=== PATIENT | male | born 1945 | race Caucasian/White ===

== ENCOUNTER → 2017-06-17 12:38 | Outpatient (CLI) | payer MEDICARE, OTHER ==
[2014-07-27 14:47] VITALS: BMI 29.5
[~2017-06-17 12:38] MED LIST: ARTHROTEC 501 TAB.EC PO; BAYER CHEWABLE81 MG PO; CARDURA4 MG; ECOTRIN325 MG PO; FLOMAX0.4 MG PO; LIPITOR10 MG; LOPRESSOR25 MG PO; PLAVIX75 MG PO; RESTORIL15 MG PO
== END | disposition home or self-care (01) ==
LOC: D.MRI 12:38
DX: S91.309A Unspecified open wound, unspecified foot, initial encounter (principal); X58.XXXA Exposure to other specified factors, initial encounter; Y93.89 Activity, other specified; Y92.89 Other specified places as the place of occurrence of the external cause

== ENCOUNTER → 2019-07-21 09:29 | Outpatient (CLI) | payer MEDICARE, BC ==
[2014-07-27 14:47] VITALS: BMI 29.5
[~2019-07-21 09:29] MED LIST changes: +ASPIRIN EC81 M1 PO; +AUGMENTIN 875-11 TAB PO; -CARDURA4 MG; +CARDURA4 MG PO; +CARTIA XT120 MG PO; +COREG 3.1253.125 MG PO; +CYTOTEC200 MCG PO; +HYDROCODON-ACE1 EAC7 PO; -LIPITOR10 MG; +LIPITOR10 MG PO; +MIRALAX17 GM PO; +MUCINEX DM ER1 EAC1 PO
== END | disposition home or self-care (01) ==
LOC: D.HCCECHO 09:29 → D.HCCARDIO 10:00
PROVIDERS: ATTEND Internal Medicine Cardiovascular Disease
DX: I34.0 Nonrheumatic mitral (valve) insufficiency (principal)

== ENCOUNTER 2019-08-03 10:34 | Inpatient (IN) | payer MEDICARE, BC ==
[~2019-08-03] VITALS: Ht 198.1 cm; Wt 109.3 kg
[~2019-08-03 10:34] MED LIST changes: -ASPIRIN EC81 M1 PO; -AUGMENTIN 875-11 TAB PO; -CARTIA XT120 MG PO; -COREG 3.1253.125 MG PO; -CYTOTEC200 MCG PO; -HYDROCODON-ACE1 EAC7 PO; -MIRALAX17 GM PO; -MUCINEX DM ER1 EAC1 PO
--- NOTE | 2019-08-03 10:49 | NUR ---
PT ARRIVED TO FLOOR FROM ADMISSIONS.
[2019-08-03 10:53] VITALS: BP 136/71
--- NOTE | 2019-08-03 12:09 | NUR ---
20G PIV INSERTED X1 ATTEMPT TO PT LEFT FA. PT TOLERATED WELL. CALL LIGHT WITHIN REACH. FAMILY AT BEDSIDE. WILL CONT TO FOLLOW POC
[2019-08-03 13:20] LABS: APPEARANCE HAZY (CLEAR); BILIRUBIN NEGATIVE (NEGATIVE); COLOR AMBER (YELLOW); GLUCOSE NEGATIVE (NEGATIVE); KETONE NEGATIVE (NEGATIVE); NITRITE NEGATIVE (NEGATIVE); PROTEIN 2+ mg/dL (NEGATIVE)
[2019-08-03 13:22] LABS: AMORPHOUS SEDIMENT >1+ /lpf (NONE SEEN); BACTERIA FEW /hpf (NEGATIVE); EPITHELIAL CELLS NSEEN /hpf (0-5); MUCUS >1+ /lpf (NONE SEEN); RED CELLS - URINE NONE SEEN /hpf (0-5); WHITE CELLS - URINE OCC /hpf (NEGATIVE)
[2019-08-03 13:42] LABS: BASOPHILS 0.1 % (0-2); EOSINOPHILS 1.1 % (0-7); HEMATOCRIT 41.1 % (42.0-54.0); HEMOGLOBIN 13.6 g/dL (13.5-17.5); IMMATURE GRANULOCYTES 1.5 % (0-5); LYMPHOCYTES 5.8 % (15-50); MCH 28.9 pg (26.0-34.0); MCHC 33.1 g/dL (31.0-37.0); MCV 87.4 fL (80.0-100.0); MEAN PLATELET VOLUME 10.5 fL (7.4-10.4); MONOCYTES 7.5 % (2-11); RDW 14.1 % (11.5-14.5); WBC 16.1 10x3/uL (4.8-10.8)
[2019-08-03 13:45] LABS: PLATELET COUNT 282 10x3/uL (130-400)
[2019-08-03 13:51] LABS: ANION GAP 10.3 mmol/L (8-16); CALCIUM 8.5 mg/dL (8.5-10.1); CARBON DIOXIDE 31.8 mmol/L (21.0-32.0); CREATININE - SERUM 1.1 mg/dL (0.6-1.3); POTASSIUM - SERUM 4.1 mmol/L (3.5-5.1)
--- NOTE | 2019-08-03 16:03 | MORECARE ---
CASE MANAGEMENT DISCHARGE SUMMARY PATIENT: BEBO COATES UNIT: [id number] ADM DATE: 08/03/19 AGE: 74 : [birth year] SEX: M ROOM/BED: D.1201 AUTHOR: ERIKA GUARDADO PHYSICIAN: REFERRING PHYSICIAN: SHEILA ALLISON MD DATE OF SERVICE: 08/03/19 Discharge Plan Patient Name: BEBO COATES Facility: [facility]:[place] : 1945 Planned Disposition: Home Anticipated Discharge Date: Discharge Date: Expected LOS: Initial Reviewer: [email or web address] Initial Review Date: 08/03/2019 Generated: 08/03/19 5:03 pm DCPIA - Discharge Planning Initial Assessment Updated by [email or web address]: Doris Miguel on 08/03/19 3:52 pm * Is the patient Alert and Oriented? Yes * PCP * [facility] * Preadmission Environment Home with Family * ADLs Independent * Other Equipment WALKING BOOT * List name and contact numbers for known caregivers / representatives who currently or will assist patient after discharge: AMY, , * Additional services required to return to the preadmission environment? No * Can the patient safely return to the preadmission environment? Yes * Has this patient been hospitalized within the prior 30 days at any hospital? No Patient Name: BEBO COATES Page 28944 at 1603 All edits/amendments must be made on the electronic document DICTATION DATE: 08/03/191602 COLOR TECHNICIAN: NANCY 08/03/191602 RPT#: [id number] DC DATE: STATUS: ADM IN [facility] [address] [place] [address] END OF REPORT
--- NOTE | 2019-08-03 16:41 | MORECARE ---
CASE MANAGEMENT DISCHARGE SUMMARY PATIENT: BEBO COATES UNIT: [id number] ADM DATE: 08/03/19 AGE: 74 : 47 SEX: M ROOM/BED: D.1201 AUTHOR: ERIKA GUARDADO PHYSICIAN: REFERRING PHYSICIAN: SHEILA ALLISON MD DATE OF SERVICE: 08/03/19 Discharge Plan Patient Name: BEBO COATES Facility: [facility]:[place] : 1945 Planned Disposition: Home Anticipated Discharge Date: Discharge Date: Expected LOS: Initial Reviewer: [email or web address] Initial Review Date: 08/03/2019 Generated: 08/03/19 5:41 pm Comments DCP- Discharge Planning Updated by [email or web address]: Doris Miguel on 08/03/19 3:[address] Patient Name: BEBO COATES Admission Status: Elective Accout number: [id number] Admission Date: 08-03-2019 : 1945 Admission Diagnosis: Attending: SHEILA ALLISON Current LOS: 1 Anticipated DC Date: Planned Disposition: Home Primary Insurance: MEDICARE A & B Discharge Planning Comments: CM MET WITH PATIENT AFTER OBTAINING VERBAL CONSENT. STATES PLANS TO DISCHARGE TO HOME. DISCUSSED NEED FOR HH, REHAB OR EQUIPMENT, PATIENT STATES NO NEEDS. CM WILL FOLLOW AND ASSIST NEEDED. Director Machine: Doris Miguel DCPIA - Discharge Planning Initial Assessment Updated by [email or web address]: Doris Miguel on 08/03/19 3:52 pm * Is the patient Alert and Oriented? Yes * PCP * [facility] * Preadmission Environment Home with Family * ADLs Independent * Other Equipment WALKING BOOT * List name and contact numbers for known caregivers / representatives who currently or will assist patient after discharge: AMY, , * Additional services required to return to the preadmission environment? No * Can the patient safely return to the preadmission environment? Yes * Has this patient been hospitalized within the prior 30 days at any hospital? No Last DP export: 08/03/19 3:03 Patient Name: BEBO COATES Page 21110 at 1641 All edits/amendments must be made on the electronic document DICTATION DATE: 08/03/191640 MANAGER MEDICAL WRITING: DM 08/03/191640 RPT#: [id number] DC DATE: STATUS: ADM IN [facility] [address] [place] [address] END OF REPORT
--- NOTE | 2019-08-03 17:42 | NUR ---
PT RESTING IN BED, FAMILY AT BEDSIDE. DENIES ANY NEEDS AT THIS TIME, WILL CONT TO FOLLOW POC
[2019-08-03 19:55] VITALS: BP 124/79
[2019-08-04] VITALS: BP 146/66
[2019-08-04 04:03] VITALS: BP 156/75
--- NOTE | 2019-08-04 05:58 | HP ---
PATIENT: BEBO COATES MEDICAL RECORD: [id number] ACCOUNT: [id number] LOCATION:[address] : [birth year] ADMISSION DATE: 08/03/19 PCP: SHEILA ALLISON MD HISTORY AND PHYSICAL EXAMINATION REASON FOR ADMISSION: Cough, congestion, and chest pains. HISTORY OF PRESENT ILLNESS: The patient is a 74-year-old male with previous history of myocardial infarction and CAD. He states that he was on a [place] a week ago and developed some diarrhea. He developed cough and congestion. The diarrhea abated with Lomotil. He came into the office of Dr. Garcia 2 days ago. He had low-grade fever not over 100, productive cough and right-sided pleuritic chest pain. Chest x-ray there then showed early right lower lobe infiltrate. His O2 sat was 93% and he deferred inpatient treatment. He was given Rocephin IM and placed on Levaquin 750 mg p.o. daily. He came in for followup today and just was not feeling better and more fatigued. His said he is eating and drinking less. He denies any recent exertional chest pain. In fact, had an echo recently with Dr. Moore showing mild left ventricular dysfunction with an EF of 35%. He said he coughed up some off colored sputum and sounds to have been streaky and blood-tinged. PAST MEDICAL HISTORY: Testicular hypofunction, ED, myocardial infarction with PTCA of the RCA remotely, osteoarthritis. He has had melanoma, skin cancer removed; Charcot joint, right ankle and foot; hyperlipidemia; essential hypertension; and paroxysmal atrial fib. PAST SURGICAL HISTORY: Arthroscopy of knee joint; he has had appendectomy; pilonidal cyst excision; fusion of the joint, right foot; right total hip replacement; PTCA of the RCA; and inguinal hernia repair. FAMILY HISTORY: Father at 57 with CAD, COPD, and acute myocardial infarction. Mother with CAD and diabetes. Living brother with CAD and prediabetes. SOCIAL HISTORY: Lifelong smoker, quit after his NM 4 years ago. He is , retired school crossing guard. HOME MEDICATIONS: Testosterone 3 cc IM every 2 weeks, doxazosin 4 mg p.o. at bedtime, misoprostol 200 mcg p.o. q.a.m., atorvastatin 10 mg at bedtime, temazepam 15 mg at bedtime p.r.n. sleep, diclofenac sodium 75 mg p.o. daily, sildenafil 100 mg p.o. p.r.n. intercourse, BuSpar 15 mg one half tab b.i.d., Voltaren topical gel t.i.d. to affected joint, Cartia XT 120 mg capsule p.o. b.i.d., and aspirin 81 mg a day. ALLERGIES: None known. REVIEW OF SYSTEMS: CONSTITUTIONAL: He has been fatigued for the last 3-4 days. Low-grade fever not over 101. HEENT: No recent visual change. He has chronic hearing difficulty. RESPIRATORY: He has had productive cough and pleuritic pain in his right chest on deep inspiration. He has mild exertional dyspnea. CARDIAC: He denies anginal symptoms, claudication, palpitations. GASTROINTESTINAL: No nausea, poor appetite, diarrhea has resolved. No abdominal pain. HISTORY AND PHYSICAL [id number] BEBO COATES GENITOURINARY: Nocturia once nightly. ENDOCRINE: Denies polyuria, polydipsia, heat or cold intolerance. NEUROLOGIC: No history of stroke, TIA, or vascular headaches. INTEGUMENT: No rash or itching. PSYCHIATRIC: Denies depressed mood. PHYSICAL EXAMINATION: VITAL SIGNS: O2 sat was 93% on room air, blood pressure 136/71, respiratory rate 16, pulse 83 and regular, temperature 98.2. GENERAL: The patient is alert and oriented, mildly dyspneic. HEENT: Eyes are clear. Pupils reactive. NECK: No bruits or masses. CHEST: He has decreased breath sounds in right base with E to A change. Left lung is clear. HEART: Regular rate. ABDOMEN: Soft, nontender. No bruits. EXTREMITIES: No CCE. His right ankle and foot is in a walking 3D boot due to an ulcer. NEUROLOGICAL: Oriented to person, place, and time. Cranial nerves intact. Gait normal. LABORATORY DATA: Pending. Currently, his white count on Thursday was 17.9 thousand. His urinalysis is flor, hazy with a pH of 1.02, 2+ protein, 4+ urobilinogen, few bacteria, 1+ mucus. DIAGNOSTIC DATA: Chest x-ray in the office shows an extensive right lower lobe infiltrate with effusion. ASSESSMENT: 1. Community-acquired pneumonia, failing outpatient treatment. 2. Pleurisy. 3. CAD. 4. Leukocytosis. 5. PAF, currently in sinus rhythm. 6. Charcot foot with foot ulcer. PLAN: The patient will be admitted for pulmonary toilet, IV antibiotics, cultures. Further workup pending clinical course. TRANSINT:[id number] Voice Confirmation ID: [id number] DOCUMENT ID: [id number] SHEILA ALLISON MD at 0558 CC: [id number] DICTATION DATE: 08/03/19 1335 WHANAU SUPPORT WORKER: 08/03/19 1553 ADM IN [place] [id number] [place] [id number]
--- NOTE | 2019-08-04 06:30 | NUR ---
DR. ALLISON ORDERED TO SALINE LOCK IV FLUIDS. IV FLUIDS SALINE LOCKED AT THIS TIME.
--- NOTE | 2019-08-04 07:30 | NUR ---
PT LAYING IN BED. RR EVEN AND UNLABORED. C/O PAIN IN BACK. PAIN MEDICATION ADMINISTERED PER ORDER. ALERT AND ORIENTED. ASSESSMENT COMPLETE. DENIES FURTHER NEEDS AT THIS TIME.
[2019-08-04 08:00] VITALS: BP 150/75
[2019-08-04 12:31] VITALS: Ht 198.1 cm; Wt 109.3 kg
--- NOTE | 2019-08-04 20:00 | NUR ---
EVENING ROUNDS COMPLETED. PT IS ALERT AND ORIENTED X4. HE IS RESTING COMFORTABLY IN HIS BED. DRESSING CHANGE PERFORMED ON HIS RIGHT GREAT TOE. NO SIGNS OF INFECTION OF ULCERATION. PT TOLERATED DRESSING CHANGE WELL AND DENIES ANY FURTHER NEEDS AT THIS TIME. STATED THAT HE WANTED TO GET HIS TRAMADOL WHEN HE GETS READY TO GO TO BED INSTEAD OF WITH HIS REGULAR NIGHT TIME MEDICATIONS. PT IS ABLE TO MAKE HIS NEEDS KNOWN. BED IN LOWEST POSITION, CALL LIGHT WITHIN REACH AND SIDE RAILSX2.
--- NOTE | 2019-08-04 20:05 | NUR ---
DRESSING CHANGE TO RIGHT GREAT TOE PLANTAR SIDE. PINK, NO DRAINAGE NOTED. DRESSED WITH MEPILEX.
[2019-08-04 21:13] VITALS: BP 154/76
--- NOTE | 2019-08-04 23:10 | NUR ---
PT RESTING COMFORTABLY IN BED. NO SIGNS OF DISTRESS. AT BEDSIDE DECLINES ANY NEEDS AT THIS MOMENT. BED IN LOWEST, CALL LIGHT WITHIN REACH OF PT AND SIDERAILS X2.
[2019-08-05 00:39] VITALS: BP 150/76
[2019-08-05 04:50] VITALS: BP 145/81
--- NOTE | 2019-08-05 05:03 | NUR ---
PT IN BED. HOB AT 45 DEGREES. PT STATES PAIN IS AT 5/10 IN HIS BACK. INFORMED HIM THAT HIS LAST PAIN DOSE WAS 0253 AND HIS NEXT AVAIL DOSE WOULD BE 0653. PT VERBALIZED UNDERSTANDING. VSS. BED IN LOWEST POSITION. CALL LIGHT WITHIN REACH. AT BEDSIDE.
[2019-08-05 06:41] LABS: BASOPHILS 0.2 % (0-2); EOSINOPHILS 0.6 % (0-7); HEMATOCRIT 39.5 % (42.0-54.0); HEMOGLOBIN 12.9 g/dL (13.5-17.5); LYMPHOCYTES 6.9 % (15-50); MCH 28.2 pg (26.0-34.0); MCHC 32.7 g/dL (31.0-37.0); MCV 86.2 fL (80.0-100.0); MONOCYTES 10.5 % (2-11); NEUTROPHILS 75.8 % (40-80); PLATELET COUNT 325 10x3/uL (130-400); RBC 4.58 10x6/uL (4.20-6.10); RDW 14.5 % (11.5-14.5); WBC 14.7 10x3/uL (4.8-10.8)
[2019-08-05 07:02] LABS: ANION GAP 10.2 mmol/L (8-16); CALCIUM 8.8 mg/dL (8.5-10.1); CARBON DIOXIDE 29.2 mmol/L (21.0-32.0); CREATININE - SERUM 1.1 mg/dL (0.6-1.3); POTASSIUM - SERUM 4.4 mmol/L (3.5-5.1)
--- NOTE | 2019-08-05 08:04 | NUR ---
PT LAYING DOWN, RR EVEN AND UNLBORED. AT BEDSIDE. DENIES NEEDS OR PAIN AT THIS TIME. WILL CONTINUE TO MONITOR.
[2019-08-05 09:09] VITALS: BP 147/80
--- NOTE | 2019-08-05 09:52 | NUR ---
I have reviewed this patient and I concur with the Shift Assessment completed by the Licensed Practical Nurse today this shift.
--- NOTE | 2019-08-05 14:57 | NUR ---
PT STATES HE IS HAVING SEVERAL EPISODES OF "HOT FLASHES". EKG COMPLETED DURING SAID "HOT FLASH", STATES SINUS RHYTHM WITH MARKED SINUS ARRHYTHMIA @ 75 BMP. TELEMETRY PLACED ON PT. SKIN FEELS CLAMMY AND PT IS DIAPHORETIC. FSBS 141. WILL NOTIFY DR. MONTEMAYOR.
--- NOTE | 2019-08-05 19:05 | NUR ---
GREETED PATIENT AND INTRODUCED MYSELF HIS NURSE. PATIENT IS LAYING IN BED IN SUPINE POSITION WITH HOB AT 35 DEGREES. RESPIRATIONS EVEN. NO S/S OF DISTRESS. AT BEDSIDE. DENIES ANY FURTHER NEEDS AT THIS TIME. CALL LIGHT IN REACH.
[2019-08-05 19:29] LABS: CKMB 0.9 U/L (0.0-3.6); CREATINE KINASE 73 UL (21-232); TROPONIN-I < 0.017 ng/mL (0.000-0.060)
[2019-08-05 19:50] VITALS: BP 153/80
[2019-08-06 00:05] VITALS: BP 152/80
[2019-08-06 00:43] LABS: CKMB 0.8 U/L (0.0-3.6); CREATINE KINASE 45 UL (21-232); TROPONIN-I < 0.017 ng/mL (0.000-0.060)
--- NOTE | 2019-08-06 01:33 | NUR ---
PT. RESTING QUIETLY WITH EYES CLOSED. HOB AT 30 DEGREES. RESPIRATIONS EVEN. NO S/S OF DISTRESS. SR UP X 2. BED IN LOWEST POSITION. CALL LIGHT IN REACH.
[2019-08-06 04:00] VITALS: BP 143/76
[2019-08-06 06:21] LABS: BASOPHILS 0.4 % (0-2); EOSINOPHILS 0.9 % (0-7); HEMATOCRIT 39.1 % (42.0-54.0); HEMOGLOBIN 12.7 g/dL (13.5-17.5); IMMATURE GRANULOCYTES 8.2 % (0-5); LYMPHOCYTES 6.1 % (15-50); MCH 28.3 pg (26.0-34.0); MCHC 32.5 g/dL (31.0-37.0); MCV 87.3 fL (80.0-100.0); MEAN PLATELET VOLUME 10.2 fL (7.4-10.4); MONOCYTES 10.5 % (2-11); NEUTROPHILS 73.9 % (40-80); RBC 4.48 10x6/uL (4.20-6.10); RDW 14.7 % (11.5-14.5); WBC 17.1 10x3/uL (4.8-10.8)
[2019-08-06 06:44] LABS: PLATELET COUNT 395 10x3/uL (130-400)
[2019-08-06 06:48] LABS: CALC OSMOLALITY 264 mosm/kg (275-300); CALCIUM 8.6 mg/dL (8.5-10.1); CARBON DIOXIDE 31.4 mmol/L (21.0-32.0); CHLORIDE - SERUM 96 mmol/L (98-107); CKMB 0.8 U/L (0.0-3.6); CREATINE KINASE 43 UL (21-232); CREATININE - SERUM 1.2 mg/dL (0.6-1.3); GLUCOSE 117 mg/dL (74-106); POTASSIUM - SERUM 4.4 mmol/L (3.5-5.1); SODIUM 131 mmol/L (136-145); UREA NITROGEN 16 mg/dL (7-18); eGFR NON AFRICAN AMERICAN 63 mL/min (90-120)
[2019-08-06 06:50] LABS: TROPONIN-I < 0.017 ng/mL (0.000-0.060)
--- NOTE | 2019-08-06 07:36 | NUR ---
PT AWAKE LYING IN BEDM, ALERT AND ORIENTED, AT BEDSIDE. NO COMPLAINTS/CONCERNS ALL QUESTIONS ANSWERED TO THE BEST OF MY ABILITY. CL IN REACH, SRX2.
[2019-08-06 07:42] VITALS: BP 154/81
--- NOTE | 2019-08-06 18:32 | NUR ---
PT DISCONECTED FROM I/V, SL. C/O SOME INCONSISTANT SMALL LOOSE BOWELS, TO BE EXPECTED WITH ANTIBIOTIC REGIMEN. NO OTHER COMPLAINTS, CONCERNS, OR COMMENTS, ALL QUESTIONS ANSWERED TO THE BEST OF MY ABILITY. CL IN REACH, SRX2, AT BEDSIDE.
--- NOTE | 2019-08-06 19:46 | NUR ---
UP IN BED WITH AT BEDSIDE. ABLE TO VOICE ALL NEEDS. SHOWS NO S/S OF ANY ACUTE DISTRESS. IV TO LEFT FOREARM IS SALINE LOC, REQUESTS TO TAKE SLEEP AID AT LATER TIME, REQUEST GRANTED. PLEASANT MOOD AND AFFECT, WILL NOTE ANY CHANGE.
[2019-08-06 19:55] VITALS: BP 153/84
--- NOTE | 2019-08-06 21:42 | NUR ---
I have reviewed this patient and I concur with the Shift Assessment completed by the Licensed Practical Nurse today this shift.
--- NOTE | 2019-08-06 23:30 | NUR ---
IN BED, WAS DAMP FROM HEAD TO TOE, WET THROUGH GOWN AND ALL BED LINENS, CHANGED AND FULL BED CHANGE WAS PERFORMED WITH ABSORBENT PADS PLACED UNDERNEATH TO HELP CAPTURE SOME OF THE SWEAT, PT STATES HE HAS BEEN DOING THIS FOR 2-3 WEEKS NOW, WILL CONTINUE TO OFFER SUPPORT.
[2019-08-06 23:59] VITALS: BP 166/90
[2019-08-07 05:04] VITALS: BP 146/85
[2019-08-07 06:36] LABS: ANION GAP 9.1 mmol/L (8-16); CARBON DIOXIDE 30.4 mmol/L (21.0-32.0); CREATININE - SERUM 1.1 mg/dL (0.6-1.3); HEMATOCRIT 41.5 % (42.0-54.0); HEMOGLOBIN 13.4 g/dL (13.5-17.5); MCH 27.5 pg (26.0-34.0); MCHC 32.3 g/dL (31.0-37.0); MCV 85.2 fL (80.0-100.0); MEAN PLATELET VOLUME 10.1 fL (7.4-10.4); PLATELET COUNT 401 10x3/uL (130-400); POTASSIUM - SERUM 4.5 mmol/L (3.5-5.1); RBC 4.87 10x6/uL (4.20-6.10); RDW 14.4 % (11.5-14.5); WBC 22.4 10x3/uL (4.8-10.8)
--- NOTE | 2019-08-07 07:17 | NUR ---
PT AWAKE AND ORIENTED, LYING IN BED. AT BEDSIDE. HAD MORE EPISODES OF SWEATING THROUGH H IS SHEETS LAST NIGHT. NO COMPLAINTS OR CONCERNS, ALL QUESTIONS ANSWERED TO THE BEST OF MY ABILITY. CL IN REACH, SRX2.
[2019-08-07 08:27] LABS: LYMPHOCYTES 5 % (15-50); MONOCYTES 3 % (2-11); NEUTROPHILS 88 % (40-80); PLATELET ESTIMATE NORMAL
--- NOTE | 2019-08-07 13:41 | NUR ---
PT I/V INFULTRATED, WILL START NEW
--- NOTE | 2019-08-07 19:10 | NUR ---
UP IN CHAIR WITH FAMILY AT SIDE, GOOD MOOD AND AFFECT. IV TO LEFT UPPER ARM IS PATENT TO FLUSH, SHOWS NO S/S OF ANY ACUTE DISTRESS. ABLE TO VOICE ALL NEEDS. DENIES PAIN AT THIS TIME. DOES REQUEST SLEEP MEDICINE TO BE GIVEN LATER THIS SHIFT. REQUEST GRANTED. WILL NOTE ANY CHANGE.
[2019-08-07 19:37] VITALS: BP 145/75
[2019-08-07 23:43] VITALS: BP 139/78
[2019-08-08 05:15] VITALS: BP 135/77
[2019-08-08 06:36] LABS: BASOPHILS 0.2 % (0-2); EOSINOPHILS 0 % (0-7); HEMATOCRIT 39.5 % (42.0-54.0); IMMATURE GRANULOCYTES 5.3 % (0-5); MCH 28.4 pg (26.0-34.0); MCHC 32.9 g/dL (31.0-37.0); MCV 86.2 fL (80.0-100.0); MEAN PLATELET VOLUME 10.5 fL (7.4-10.4); MONOCYTES 4.1 % (2-11); NEUTROPHILS 87.4 % (40-80); PLATELET COUNT 431 10x3/uL (130-400); RBC 4.58 10x6/uL (4.20-6.10); RDW 14.7 % (11.5-14.5); WBC 26.3 10x3/uL (4.8-10.8)
--- NOTE | 2019-08-08 07:10 | NUR ---
REPORT RECEIVED FROM EMERGENCY WORKER AND PATIENT CARE ASSUMED. PATIENT LAYING IN BED ON BACK AWAKE, ALERT AND ORIENTED X 4. PATIENT IS STABLE AND VSS. PATIENT DENIES ANY NEEDS OR PAIN. WILL CONTINUE WITH PLAN OF CARE. SR UP X 2 BED IN LOW POSITION AND CALL LIGHT IN REACH. AT BS.
[2019-08-08 07:22] LABS: ANION GAP 12.2 mmol/L (8-16); CALCIUM 8.9 mg/dL (8.5-10.1); CARBON DIOXIDE 29.4 mmol/L (21.0-32.0); CREATININE - SERUM 1.2 mg/dL (0.6-1.3); POTASSIUM - SERUM 4.6 mmol/L (3.5-5.1)
[2019-08-08 08:00] VITALS: BP 123/71
--- NOTE | 2019-08-08 08:30 | NUR ---
PATIENT AMBULATING IN HALLWAY WITH SIFE AT SIDE. PATIENT TOLERATING WELL.
[2019-08-08 12:48] VITALS: BP 126/75
--- NOTE | 2019-08-08 17:08 | NUR ---
PATIENT UP TO SHOWER. CLEAN GOWN AND SOCKS AND COMPLETE BED LINEN CHANGE. PATIENT IS STABLE AND VSS. PATIENT DENIES ANY NEEDS OR PAIN. WILL CONTINUE TO MONITOR. SR UP X 2 BED IN LOW POSITION AND CALL LIGHT IN REACH.
[2019-08-08 17:09] VITALS: BP 136/78
--- NOTE | 2019-08-08 17:13 | NUR ---
WOUND TO RT GREAT TOE CLEANSED AND NEW DRSG APPLIED.
[2019-08-08 19:29] VITALS: BP 142/84
--- NOTE | 2019-08-08 19:29 | NUR ---
PATIENT RESTING IN BED AND DENIES NEEDS AT THIS TIME. AT BEDSIDE. VSS. BED IN LOWEST POSITION AND CALL LIGHT WITHIN REACH. ENCOURAGED THE PATIENT TO CALL IF HE HAS NEEDS. WILL CONTINUE TO MONITOR.
--- NOTE | 2019-08-08 21:06 | NUR ---
PATIENT RESTING IN BED WITH NO S/S OF DISTRESS. ADMINISTERED MEDS PER ORDERS. PATIENT DENIES NEEDS. ENCOURAGED THE PATIENT TO CALL IF HE HAS NEEDS. WILL CONTINUE TO MONITOR.
[2019-08-08 23:38] VITALS: BP 147/82
[2019-08-09 04:04] VITALS: BP 146/76
[2019-08-09 06:55] LABS: CALC OSMOLALITY 282 mosm/kg (275-300); CALCIUM 8.7 mg/dL (8.5-10.1); CARBON DIOXIDE 30.2 mmol/L (21.0-32.0); CHLORIDE - SERUM 101 mmol/L (98-107); GLUCOSE 200 mg/dL (74-106); SODIUM 136 mmol/L (136-145); UREA NITROGEN 26 mg/dL (7-18); eGFR NON AFRICAN AMERICAN 78 mL/min (90-120)
[2019-08-09 07:00] LABS: POTASSIUM - SERUM 5.3 mmol/L (3.5-5.1)
[2019-08-09 07:15] LABS: HEMATOCRIT 40.5 % (42.0-54.0); MCH 28.2 pg (26.0-34.0); MCHC 32.1 g/dL (31.0-37.0); MCV 87.9 fL (80.0-100.0); MEAN PLATELET VOLUME 10.8 fL (7.4-10.4); PLATELET COUNT 446 10x3/uL (130-400); RBC 4.61 10x6/uL (4.20-6.10); RDW 14.8 % (11.5-14.5); WBC 24.6 10x3/uL (4.8-10.8)
--- NOTE | 2019-08-09 07:15 | NUR ---
PT RESTING IN BED, SHIFT ASSESSMENT PERFORMED. VSS AND WNL. DENIES ANY NEEDS AT THIS TIME, WILL CONT TO FOLLOW POC
[2019-08-09 07:27] VITALS: BP 148/65
--- NOTE | 2019-08-09 09:24 | MORECARE ---
CASE MANAGEMENT DISCHARGE SUMMARY PATIENT: BEBO COATES UNIT: [id number] ADM DATE: 08/03/19 AGE: 74 : [birth year] SEX: M ROOM/BED: D.1201 AUTHOR: [email or web address] PHYSICIAN: REFERRING PHYSICIAN: SHEILA ALLISON MD DATE OF SERVICE: 08/09/19 Discharge Plan Patient Name: BEBO COATES Facility: [facility]:[place] : 1945 Planned Disposition: Home Anticipated Discharge Date: Discharge Date: Expected LOS: Initial Reviewer: [email or web address] Initial Review Date: 08/03/2019 Generated: 08/09/19 10:24 am Comments DCP- Discharge Planning Updated by [email or web address]: Doris Miguel on 08/09/19 8:[address] Patient Name: BEBO COATES Encounter No: [id number] : 1945 Primary Insurance: MEDICARE A & B Anticipated DC Date: Planned Disposition: Home External Planned Provider: : DCP follow-up note: Patient and family in agreement with discharge plan. No changes to plan. Case management will follow and assist as needed. Doris Miguel DCP- Discharge Planning Updated by [email or web address]: Doris Miguel on 08/03/19 3:[address] Patient Name: BEBO COATES Admission Status: Elective Accout number: [id number] Admission Date: 08-03-2019 : 1945 Admission Diagnosis: Attending: SHEILA ALLISON Current LOS: 1 Anticipated DC Date: Planned Disposition: Home Primary Insurance: MEDICARE A & B Discharge Planning Comments: CM MET WITH PATIENT AFTER OBTAINING VERBAL CONSENT. STATES PLANS TO DISCHARGE TO HOME. DISCUSSED NEED FOR HH, REHAB OR EQUIPMENT, PATIENT STATES NO NEEDS. CM WILL FOLLOW AND ASSIST NEEDED. Bobbin Cleaning Machine Operator: Doris Miguel DCPIA - Discharge Planning Initial Assessment Updated by [id number]: Doris Miguel on 08/03/19 3:52 pm * Is the patient Alert and Oriented? Yes * PCP * [facility] * Preadmission Environment Home with Family * ADLs Independent * Other Equipment WALKING BOOT * List name and contact numbers for known caregivers / representatives who currently or will assist patient after discharge: AMY, , * Additional services required to return to the preadmission environment? No * Can the patient safely return to the preadmission environment? Yes * Has this patient been hospitalized within the prior 30 days at any hospital? No Coverage Notice Reviewer: [id number] Pattie Miguel Notice Issued Date-Time: 08/09/2019 9:22 Notice Type: IM Discharge Notice Notice Delivered To: Patient Relationship to Patient: Special Order Jeweler Name: Delivery Method: HAND - Hand Delivered Mirtha Days: Prior Verbal Notification: Recipient Understood Notice: Yes Recipient Signature: Yes Med Rec Note Co-signed by Attending: Coverage Notice Comment: Last DP export: 08/03/19 3:41 Patient Name: BEBO COATES Page 68517 at 0924 All edits/amendments must be made on the electronic document DICTATION DATE: 08/09/19922 AUTOMATION CONTROL INTEGRATOR: NANCY 08/09/19922 RPT#: [id number] DC DATE: STATUS: ADM IN [facility] [address] [place] [address] END OF REPORT
--- NOTE | 2019-08-09 10:29 | NUR ---
DISCHARGE INSTRUCTIONS REVIEWED WITH PT AND ALL QUESTIONS ANSWERED. PIV REMOVED WITH CATHTER TIP INTACT. PT TAKEN TO THE FRONT OF THE HOSPITAL VIA WHEELCHAIR WHERE HE LEFT WITH SPOUSE
[2019-08-09 12:07] LABS: LYMPHOCYTES 16 % (15-50); MONOCYTES 11 % (2-11); NEUTROPHILS 69 % (40-80); PLATELET ESTIMATE INCREASED; ROULEAUX OCC
--- NOTE | 2019-08-09 15:37 | MORECARE ---
CASE MANAGEMENT DISCHARGE SUMMARY PATIENT: BEBO COATES UNIT: [id number] ADM DATE: 08/03/19 AGE: 74 : [birth year] SEX: M ROOM/BED: D.1201 AUTHOR: DEBBYDOC PHYSICIAN: REFERRING PHYSICIAN: SHEILA ALLISON MD DATE OF SERVICE: 08/09/19 Discharge Plan Patient Name: BEBO COATES Facility: [facility]:[place] : 1945 Planned Disposition: Home Anticipated Discharge Date: Discharge Date: 08/09/2019 Expected LOS: Initial Reviewer: [email or web address] Initial Review Date: 08/03/2019 Generated: 08/09/19 4:36 pm Comments DCP- Discharge Planning Updated by [id number]: Doris Miguel on 08/09/19 8:[address] Patient Name: BEBO COATES Encounter No: [id number] : 1945 Primary Insurance: MEDICARE A & B Anticipated DC Date: Planned Disposition: Home External Planned Provider: : DCP follow-up note: Patient and family in agreement with discharge plan. No changes to plan. Case management will follow and assist as needed. Doris Miguel DCP- Discharge Planning Updated by [email or web address]: Doris Miguel on 08/03/19 3:[address] Patient Name: BEBO COATES Admission Status: Elective Accout number: [id number] Admission Date: 08-03-2019 : 1945 Admission Diagnosis: Attending: SHEILA ALLISON Current LOS: 1 Anticipated DC Date: Planned Disposition: Home Primary Insurance: MEDICARE A & B Discharge Planning Comments: CM MET WITH PATIENT AFTER OBTAINING VERBAL CONSENT. STATES PLANS TO DISCHARGE TO HOME. DISCUSSED NEED FOR HH, REHAB OR EQUIPMENT, PATIENT STATES NO NEEDS. CM WILL FOLLOW AND ASSIST NEEDED. Activity Specialist: Doris Miguel DCPIA - Discharge Planning Initial Assessment Updated by [email or web address]: Doris Miguel on 08/03/19 3:52 pm * Is the patient Alert and Oriented? Yes * PCP MAORI * [facility] * Preadmission Environment Home with Family * ADLs Independent * Other Equipment WALKING BOOT * List name and contact numbers for known caregivers / representatives who currently or will assist patient after discharge: AMY, , * Additional services required to return to the preadmission environment? No * Can the patient safely return to the preadmission environment? Yes * Has this patient been hospitalized within the prior 30 days at any hospital? No Coverage Notice Reviewer: [id number] Pattie Miguel Notice Issued Date-Time: 08/09/2019 9:22 Notice Type: IM Discharge Notice Notice Delivered To: Patient Relationship to Patient: Home Energy Inspector Name: Delivery Method: HAND - Hand Delivered Mirtha Days: Prior Verbal Notification: Recipient Understood Notice: Yes Recipient Signature: Yes Med Rec Note Co-signed by Attending: Coverage Notice Comment: Last DP export: 08/09/19 8:24 Patient Name: BEBO COATES Page 08564 at 1537 All edits/amendments must be made on the electronic document DICTATION DATE: 08/09/191535 CUSTODIAL MANAGER: NANCY 08/09/191535 RPT#: [id number] DC DATE:08/09/19 STATUS: DIS IN [facility] [address] [place] [address] END OF REPORT
== END 2019-08-09 10:31 | disposition home or self-care (01) | DRG 195 ==
LOC: D.M3 10:34
PROVIDERS: Family Medicine; ADMIT Family Medicine; ATTEND Family Medicine
DX: J18.1 Lobar pneumonia, unspecified organism (principal); I25.10 Atherosclerotic heart disease of native coronary artery without angina pectoris; I48.0 Paroxysmal atrial fibrillation; E78.5 Hyperlipidemia, unspecified; I10 Essential (primary) hypertension; R73.9 Hyperglycemia, unspecified; M14.671 Charcot's joint, right ankle and foot

== ENCOUNTER 2019-09-07 10:28 | Inpatient (IN) | payer MEDICARE, BC ==
[~2019-09-07] VITALS: Ht 198.1 cm; Wt 101.8 kg
[2019-09-07 14:58] LABS: BASOPHILS 0.6 % (0-2); EOSINOPHILS 1.8 % (0-7); HEMATOCRIT 41.5 % (42.0-54.0); HEMOGLOBIN 12.7 g/dL (13.5-17.5); IMMATURE GRANULOCYTES 5.3 % (0-5); LYMPHOCYTES 9.7 % (15-50); MCH 26.7 pg (26.0-34.0); MCHC 30.6 g/dL (31.0-37.0); MCV 87.2 fL (80.0-100.0); MEAN PLATELET VOLUME 9.7 fL (7.4-10.4); MONOCYTES 10.2 % (2-11); NEUTROPHILS 72.4 % (40-80); RBC 4.76 10x6/uL (4.20-6.10); RDW 14.6 % (11.5-14.5); WBC 14.1 10x3/uL (4.8-10.8)
[2019-09-07 14:59] LABS: PLATELET COUNT 347 10x3/uL (130-400)
[2019-09-07] MEDS ORDERED: COREG 3.1253.125 MG PO (15:04)
[2019-09-07] MEDS ORDERED: CARTIA XT120 MG PO (15:06)
[2019-09-07 15:07] LABS: CALC OSMOLALITY 279 mosm/kg (275-300); CALCIUM 8.5 mg/dL (8.5-10.1); CARBON DIOXIDE 33.2 mmol/L (21.0-32.0); CHLORIDE - SERUM 104 mmol/L (98-107); POTASSIUM - SERUM 4.3 mmol/L (3.5-5.1); SODIUM 139 mmol/L (136-145); UREA NITROGEN 13 mg/dL (7-18); eGFR NON AFRICAN AMERICAN 78 mL/min (90-120)
[2019-09-07 15:10] LABS: GLUCOSE 134 mg/dL (74-106)
--- NOTE | 2019-09-07 16:00 | NUR ---
ASSESSMENT PER FLOW SHEET. IV HAS BEEN SITED TO LEFT FOREARM USING ASEPTIC TECH X1 STICK ,20G.COLLECTION CUP TO ROOM FOR URINE. PT INSTRUCTED.FAMILY AT BEDSIDE.MONITOR FOR NEEDS.
[2019-09-07 16:23] VITALS: BP 146/81
[2019-09-07 16:28] LABS: APPEARANCE CLEAR (CLEAR); BILIRUBIN NEGATIVE (NEGATIVE); COLOR YELLOW (YELLOW); GLUCOSE NEGATIVE (NEGATIVE); KETONE NEGATIVE (NEGATIVE); NITRITE NEGATIVE (NEGATIVE); PROTEIN NEGATIVE (NEGATIVE); UROBILINOGEN NORMAL (NORMAL)
[2019-09-07 17:06] VITALS: BP 136/76; BMI 26.4
--- NOTE | 2019-09-07 17:14 | HP ---
PATIENT: BEBO COATES MEDICAL RECORD: [id number] ACCOUNT: [id number] LOCATION:D.MS [id number] : 47 ADMISSION DATE: 09/07/19 PCP: SHEILA ALLISON MD HISTORY AND PHYSICAL EXAMINATION REASON FOR ADMISSION: Night sweats, cough. HISTORY OF PRESENT ILLNESS: The patient is a 74-year-old male who was hospitalized on August 03 of this year for community-acquired right lower lobe pneumonia. He was initially treated outpatient, but failed and was placed on IV antibiotics, and pulmonary toilet. His blood and sputum cultures returned negative. The patient improved. Chest x-ray showed partial clearing of his pneumonia, leukocytosis resolved. He was sent home on Levaquin 750 mg p.o. daily to complete a 10-day course. Initially did well, had follow up chest x-ray in the office showed partial clearing and resolution of symptoms. He returned to the office 2 days ago saying that he had some cough and night sweats. His chest x-ray at that time showed question of a right pleural effusion, possible empyema. His resting sat was 97%. Labs showed a white count of 13.9 thousand with left shift, a normal BMP. He was scheduled for CT of the chest, completed today showing an empyema in the right lower lobe. He is now being directly admitted for IV antibiotics and pulmonary consult. He denies chest pain or shortness of breath at this time. He has had poor appetite and some weight loss. PAST MEDICAL HISTORY: Community-acquired pneumonia, right lower lobe on July 2019; coronary artery disease; posterior inferior wall IA; testicular hypofunction; PTCA of the RCA 2 years ago; osteoarthritis; history of melanoma, skin cancers removed; Charcot joint, right foot and ankle, which she has had recent surgery and still has a nonhealing wound; hyperlipidemia; essential hypertension; paroxysmal atrial fibrillation. PAST SURGICAL HISTORY: PTCA to RCA, inguinal hernia repair, arthroscopy of the knee joint. He has had appendectomy, pilonidal cyst removal, fusion of the right foot and ankle joint, and right total hip replacement. FAMILY HISTORY: Father at 57 with CAD, COPD, and acute myocardial infarction. Mother with CAD and diabetes, living brother with CAD and prediabetes. SOCIAL HISTORY: Lifelong smoker, quit after his IA 4 years ago. He is . He is a retired elementary summer school teacher. ALLERGIES: None known. CURRENT MEDICATIONS: Coreg 3.125 mg q.12 hours; testosterone 200 mg per cc, 3 cc IM every 2 weeks; Flomax 0.4 mg at bedtime; temazepam 15 mg at bedtime; misoprostol 200 mcg p.o. q.a.m.; atorvastatin 10 mg at bedtime; sildenafil 100 mg tablet p.r.n. intercourse; Cartia XT 120 mg extended release b.i.d., and aspirin 81 mg daily. REVIEW OF SYSTEMS: CONSTITUTIONAL: He has been fatigued with night sweats, but no recent fever. HEENT: No recent visual change, sinus congestion, or sore throat. He has chronic trouble hearing. RESPIRATORY: Dry cough, nonproductive. No chest pain recently. HISTORY AND PHYSICAL [id number] BEBO COATES CARDIAC: No palpitation, PND, or orthopnea. GASTROINTESTINAL: No nausea, vomiting, change in stools, or blood per rectum. GENITOURINARY: Has nocturia once or twice nightly, improved on Flomax. No dysuria. MUSCULOSKELETAL: Has pain in his right ankle and foot currently. INTEGUMENT: Poorly healing foot ulcer currently on the right foot. No icterus. PSYCHIATRIC: Denies depressed mood. PHYSICAL EXAMINATION: VITAL SIGNS: He weighs 270 pounds, height 79 inches, BMI is 30, temperature 98.9, blood pressure 130/80. GENERAL: The patient is alert and oriented. HEENT: Eyes are clear. NECK: No bruits or masses. CHEST: He has E to A change in right lower lobe with faint crackles and faint expiratory wheezes. Left lung is clear. HEART: Regular rate and rhythm. ABDOMEN: Soft, nontender. GENITOURINARY: Deferred. EXTREMITIES: No CC&E. His right lower extremity is in a 3D below the knee walking boot. NEUROLOGICAL: Grossly intact. Gait is normal. LABORATORY DATA: As above. CT scan showing empyema on the right. ASSESSMENT: Empyema post community-acquired pneumonia, clinically asymptomatic; hyperlipidemia; hypertension; osteoarthritis; CAD, clinically stable. PLAN: The patient will be admitted for cultures, broad-spectrum IV antibiotics, pulmonary consult with Dr. Mares. TRANSINT:[id number] Voice Confirmation ID: [id number] DOCUMENT ID: [id number] SHEILA ALLISON MD at 1714 CC: [id number] DICTATION DATE: 09/07/19 1222 SUPERVISOR SPECIAL EFFECTS: 09/07/19 1324 ADM IN [facility] [address] [place] [address]
--- NOTE | 2019-09-07 18:38 | NUR ---
REMAINS WITHOUT DISTRESS.CONT PLAN OF CARE
--- NOTE | 2019-09-07 19:45 | NUR ---
A&O X 4, AT BEDSIDE. REPORTS FREQUENT PRODUCTIVE COUGHING. NO CHEST PAIN WHILE TAKING DEEP BREATHS. O2 STABLE ON ROOM AIR. RIGHT LEG CAST PRESENT, PT STATES IT'S COVERING A NON-HEALING WOULD ON FOOT, ONGOING FOR 2 YEARS. DENIES PAIN/NEEDS AT THIS TIME. AT BEDSIDE. WILL CONTINUE TO MONITOR.
[2019-09-07 21:12] VITALS: BP 136/71
[2019-09-08 01:47] VITALS: BP 138/77
--- NOTE | 2019-09-08 02:42 | NUR ---
I have reviewed this patient and I concur with the Shift Assessment completed by the Licensed Practical Nurse today this shift.
[2019-09-08 06:22] VITALS: BP 141/82
[2019-09-08 06:32] LABS: BASOPHILS 0.3 % (0-2); EOSINOPHILS 1.3 % (0-7); HEMOGLOBIN 13.1 g/dL (13.5-17.5); IMMATURE GRANULOCYTES 6.1 % (0-5); MCH 27.2 pg (26.0-34.0); MCHC 31.2 g/dL (31.0-37.0); MCV 87.1 fL (80.0-100.0); MEAN PLATELET VOLUME 10.1 fL (7.4-10.4); MONOCYTES 7.4 % (2-11); NEUTROPHILS 76.9 % (40-80); PLATELET COUNT 335 10x3/uL (130-400); RBC 4.82 10x6/uL (4.20-6.10); RDW 14.9 % (11.5-14.5)
[2019-09-08 06:39] LABS: APTT 38.4 SECONDS (22.8-39.4); INR 1.15 (0.85-1.17); PROTIME 14.2 SECONDS (11.6-15.0); WBC 18.4 10x3/uL (4.8-10.8)
[2019-09-08 06:48] LABS: ALBUMIN 2.3 g/dL (3.4-5.0); ALKALINE PHOSPHATASE 70 U/L (46-116); ALT (SGPT) 24 U/L (10-68); BILIRUBIN - TOTAL 0.49 mg/dL (0.2-1.3); CALC OSMOLALITY 272 mosm/kg (275-300); CALCIUM 8.7 mg/dL (8.5-10.1); CARBON DIOXIDE 28.1 mmol/L (21.0-32.0); CHLORIDE - SERUM 101 mmol/L (98-107); GLUCOSE 137 mg/dL (74-106); MAGNESIUM - SERUM 1.9 mg/dL (1.8-2.4); PHOSPHOROUS 2.8 mg/dL (2.5-4.9); PROTEIN - SERUM 7.4 g/dL (6.4-8.2); SODIUM 136 mmol/L (136-145); UREA NITROGEN 11 mg/dL (7-18); eGFR NON AFRICAN AMERICAN 78 mL/min (90-120)
[2019-09-08 08:42] VITALS: BP 124/54
[2019-09-08 09:57] VITALS: BMI 26.3
[2019-09-08 13:23] VITALS: BP 129/79
[2019-09-08 15:43] LABS: HEMATOCRIT 43.3 % (42.0-54.0); HEMOGLOBIN 13.5 g/dL (13.5-17.5); MCH 27.2 pg (26.0-34.0); MCHC 31.2 g/dL (31.0-37.0); MCV 87.1 fL (80.0-100.0); MEAN PLATELET VOLUME 9.6 fL (7.4-10.4); RBC 4.97 10x6/uL (4.20-6.10); RDW 14.8 % (11.5-14.5); WBC 14.9 10x3/uL (4.8-10.8)
[2019-09-08 16:03] LABS: APTT 43.1 SECONDS (22.8-39.4); INR 1.14 (0.85-1.17); PROTIME 14.1 SECONDS (11.6-15.0)
[2019-09-08 16:10] VITALS: Ht 198.1 cm; Wt 101.8 kg
[2019-09-08 16:16] LABS: ALBUMIN 2.4 g/dL (3.4-5.0); ANION GAP 10.2 mmol/L (8-16); BILIRUBIN - TOTAL 0.44 mg/dL (0.2-1.3); CALCIUM 8.2 mg/dL (8.5-10.1); CARBON DIOXIDE 31.8 mmol/L (21.0-32.0); CREATININE - SERUM 1.1 mg/dL (0.6-1.3)
[2019-09-08 16:45] VITALS: BP 135/75
[2019-09-08 18:13] LABS: APPEARANCE CLEAR (CLEAR); BILIRUBIN NEGATIVE (NEGATIVE); COLOR YELLOW (YELLOW); GLUCOSE NEGATIVE (NEGATIVE); KETONE NEGATIVE (NEGATIVE); NITRITE NEGATIVE (NEGATIVE); PROTEIN NEGATIVE (NEGATIVE); UROBILINOGEN NORMAL (NORMAL)
--- NOTE | 2019-09-08 19:21 | NUR ---
PT IS WITHOUT DISTRESS.HE IS BACK FROM RADIOLOGY. HE HAS REQUESTED TO SHAVE BEFORE CONT IV ABX.HE IS WITHOUT CHANGE FROM INITIAL SHIFT ASSESSMENT.CONT PLAN OF CARE
[2019-09-08 21:23] VITALS: BP 130/77
--- NOTE | 2019-09-08 22:00 | NUR ---
A&O X 4, AT BEDSIDE. IV TO LEFT FOREARM INFILTRATED. SWELLING AND REDNESS NOTED TO SURROUNDING SKIN, DCd WITH CATH INTACT. PT REQUESTED TO TAKE SHOWER FOR HIBICLENS BEFORE NEW IV IS SITED. WILL CONTINUE TO MONITOR.
[2019-09-09] VITALS (23 sets, daily range): BP systolic 101–149; BP diastolic 50–79
--- NOTE | 2019-09-09 04:48 | NUR ---
I have reviewed this patient and I concur with the Shift Assessment completed by the Licensed Practical Nurse today this shift.
[2019-09-09 05:05] LABS: BASOPHILS 0.3 % (0-2); EOSINOPHILS 0.9 % (0-7); HEMATOCRIT 43.2 % (42.0-54.0); HEMOGLOBIN 13.4 g/dL (13.5-17.5); IMMATURE GRANULOCYTES 7.6 % (0-5); LYMPHOCYTES 10.4 % (15-50); MCH 26.9 pg (26.0-34.0); MCV 86.7 fL (80.0-100.0); MEAN PLATELET VOLUME 10.2 fL (7.4-10.4); MONOCYTES 7.3 % (2-11); NEUTROPHILS 73.5 % (40-80); PLATELET COUNT 362 10x3/uL (130-400); RBC 4.98 10x6/uL (4.20-6.10); RDW 14.9 % (11.5-14.5); WBC 17.5 10x3/uL (4.8-10.8)
[2019-09-09 05:27] LABS: ANION GAP 10.6 mmol/L (8-16); CALCIUM 8.7 mg/dL (8.5-10.1); CARBON DIOXIDE 30.3 mmol/L (21.0-32.0); CREATININE - SERUM 1.2 mg/dL (0.6-1.3); POTASSIUM - SERUM 3.9 mmol/L (3.5-5.1)
--- NOTE | 2019-09-09 07:10 | NUR ---
OFF UNIT TO SURGERY.
--- NOTE | 2019-09-09 09:28 | NUR ---
PATIET WITH A FULL RIGHT LOWER LEG CAST. BELOW KNEE COVER WHOLE FOOT AND TOES.
--- NOTE | 2019-09-09 13:40 | NUR ---
1315-RECIEVED FROM IS-SBPYLLBOR-PAPOOZ PERSISTANT STIMULI ABLE TO OPEN EYES-SIMPLE MASK AT 10L -RJ IJ IN PLACE-PLASMALYTE AT 30ML/H-R RADIAL ALEX-TO MONITOR-WITH GOOD WAVE FORM-CVP TO MONITOR WITH RESP ARTIFACT WAVE FORM -L LATERAL CHEST TUBES X2-NO AIR LEAK 20CM SUCTION-ACKNOWLEDGE TURN OVER OF CANNISTER-MEASURED AND MARKED-DR HAM AWARE OF SAME -SR ON MONITOR WITH NOTED PAC AND OCC PVC-NUNEZ CATH-R LEG CASTING IN PLACE-DR ALLISON AT BEDSIDE STATED PLAN FOR R LEG CAST REMOVAL IS THURSDAY OR THURSDAY-DR NELSON AT [facility] -SPOKE WITH DR HAM REGARDING FINGINGS-PT ADDRESSED BY ALL DOCTORS AND ABLE TO ACKNOWLEDGE-O2 TITRATED TO HIGH FLOW-7 L AT DIRECTION OF DR NELSON-SEE RT NOTES FOR FURTHER O2 CHANGES 1340-PORTABLE CHEST XRAY COMPLETED AND VERIFIED BY DR HAM-HOB ELEVATED TO 60*
--- NOTE | 2019-09-09 19:07 | NUR ---
BEDSIDE SHIFT REPORT GIVEN BY DEPARTING RN. PT LAYING IN BED WITH EYES CLOSED. 4L NC WITH OS SAT 99%. ORIENTED X4. RT A LINE NOTED. RT IJ NOTED AND INFUSING MD ORDERED MEDS. FC DRAINING TO GRAVITY. SAFETY MEASURES IN PLACE. CBIR. ASSESSMENT COMPLETE. SEE FS FOR FULL DETAILS.
--- NOTE | 2019-09-09 19:22 | MORECARE ---
CASE MANAGEMENT DISCHARGE SUMMARY PATIENT: BEBO COATES UNIT: [id number] ADM DATE: 09/07/19 AGE: 74 : 47 SEX: M ROOM/BED: D.[facility] AUTHOR: ERIKA GUARDADO PHYSICIAN: REFERRING PHYSICIAN: SHEILA ALLISON MD DATE OF SERVICE: 09/09/19 Discharge Plan Patient Name: BEBO COATES Facility: [facility]:[place] : 1945 Planned Disposition: Home Anticipated Discharge Date: Discharge Date: Expected LOS: Initial Reviewer: [email or web address] Initial Review Date: 09/09/2019 Generated: 09/09/19 8:21 pm DCPIA - Discharge Planning Initial Assessment Updated by [email or web address]: Roshni Otero on 09/09/19 7:21 pm * Is the patient Alert and Oriented? Yes * PCP MALAGASY * [facility] * Preadmission Environment Home with Family * ADLs Independent * Other Equipment WALKING BOOT * List name and contact numbers for known caregivers / representatives who currently or will assist patient after discharge: AMY COATES - - [phone] * Verbal permission to speak to the caregivers and representatives has been obtained from the patient. Yes * Community resources currently utilized None * Additional services required to return to the preadmission environment? No * Can the patient safely return to the preadmission environment? Yes * Has this patient been hospitalized within the prior 30 days at any hospital? No Patient Name: BEBO COATES Page 80424 at 1922 All edits/amendments must be made on the electronic document DICTATION DATE: 09/09/191920 THROW OUT CLERK: NANCY 09/09/191920 RPT#: [id number] DC DATE: STATUS: ADM IN [facility] [address] [place] [address] END OF REPORT
--- NOTE | 2019-09-09 19:28 | MORECARE ---
CASE MANAGEMENT DISCHARGE SUMMARY PATIENT: BEBO COATES UNIT: [id number] ADM DATE: 09/07/19 AGE: 74 : 47 SEX: M ROOM/BED: D.01 AUTHOR: DEBBY,DOC PHYSICIAN: REFERRING PHYSICIAN: SHEILA ALLISON MD DATE OF SERVICE: 09/09/19 Discharge Plan Patient Name: BEBO COATES Facility: [facility]:[place] : 1945 Planned Disposition: Home Anticipated Discharge Date: Discharge Date: Expected LOS: Initial Reviewer: [email or web address] Initial Review Date: 09/09/2019 Generated: 09/09/19 8:28 pm Comments DCP- Discharge Planning Updated by [email or web address]: Roshni Otero on 09/09/19 6:[address] Patient Name: BEBO COATES Admission Status: Elective Accout number: [id number] Admission Date: 09-07-2019 : 1945 Admission Diagnosis: Attending: SHEILA ALLISON Current LOS: 2 Anticipated DC Date: Planned Disposition: Home Primary Insurance: MEDICARE A & B Discharge Planning Comments: CM met with patient at bedside after explaining CM role and obtaining verbal consent. Patient lives at home with his Amy where he is independent with his care and plans to return there upon discharge. Patient feels this would be a safe discharge. CM discussed availability / needs of home health and medical equipment. Patient denies any discharge needs at this time. Patient states he will have his family drive him home upon discharge. Patient may need walk test if 02 required upon discharge. CM will continue to follow and assist as needed with discharge planning / needs. Deployment Specialist: Roshni Otero DCPIA - Discharge Planning Initial Assessment Updated by [email or web address]: Roshni Otero on 09/09/19 7:21 pm * Is the patient Alert and Oriented? Yes * PCP * [facility] * Preadmission Environment Home with Family * ADLs Independent * Other Equipment WALKING BOOT * List name and contact numbers for known caregivers / representatives who currently or will assist patient after discharge: AMY COATES - - [phone] * Verbal permission to speak to the caregivers and representatives has been obtained from the patient. Yes * Community resources currently utilized None * Additional services required to return to the preadmission environment? No * Can the patient safely return to the preadmission environment? Yes * Has this patient been hospitalized within the prior 30 days at any hospital? No Last DP export: 09/09/19 6:22 Patient Name: BEBO COATES Page 15892 at 1927 All edits/amendments must be made on the electronic document DICTATION DATE: 09/09/191927 PLANNING ADVISOR: NANCY 09/09/191927 RPT#: [id number] DC DATE: STATUS: ADM IN [facility] [address] [place] [address] END OF REPORT
--- NOTE | 2019-09-09 20:32 | NUR ---
FAMILY AT BEDSIDE. ALL QUESTIONS ANSWERED. VERBALIZES UNDERSTANDING.
--- NOTE | 2019-09-09 21:29 | NUR ---
PRN PAIN MED GIVEN. SEE MAR FOR DETAILS.
--- NOTE | 2019-09-09 23:01 | NUR ---
REASSESSMENT COMPLETE. LAYING IN BED WITH EYES CLOSED. ANSWERS ALL QUESTIONS APPROPRIATELY. NO SS OF DISTRESS NOTED. VSS. REPOSITIONED. ICE CHIPS PROVIDED PER PT REQUEST. SAFETY MEASURES IN PLACE. CBIR.
[2019-09-10] VITALS (23 sets, daily range): BP systolic 112–139; BP diastolic 63–74
--- NOTE | 2019-09-10 02:57 | NUR ---
PRN PAIN MED GIVEN. SEE MAR FOR DETAILS. VSS. SAFETY MEASURES IN PLACE. DECLINES REPOSITIONING.
--- NOTE | 2019-09-10 03:53 | NUR ---
REASSESSMENT COMPLETE. LAYING IN BED WATCHING TV. AAOX4. REPOSITIONED. ICE WATER PROVIDED. VSS. PLEASANT DISPOSITION. SAFETY MEASURES IN PLACE. CBIR.
[2019-09-10 06:47] LABS: HEMATOCRIT 38.5 % (42.0-54.0); HEMOGLOBIN 11.7 g/dL (13.5-17.5); MCHC 30.4 g/dL (31.0-37.0); MCV 88.9 fL (80.0-100.0); MEAN PLATELET VOLUME 10.2 fL (7.4-10.4); PLATELET COUNT 339 10x3/uL (130-400); RBC 4.33 10x6/uL (4.20-6.10); RDW 15.2 % (11.5-14.5); WBC 23.1 10x3/uL (4.8-10.8)
[2019-09-10 06:54] LABS: BILIRUBIN - TOTAL 0.41 mg/dL (0.2-1.3); CARBON DIOXIDE 29.8 mmol/L (21.0-32.0); CREATININE - SERUM 1.1 mg/dL (0.6-1.3); PROTEIN - SERUM 6.6 g/dL (6.4-8.2)
[2019-09-10 06:55] LABS: ANION GAP 9.7 mmol/L (8-16); POTASSIUM - SERUM 4.5 mmol/L (3.5-5.1)
[2019-09-10 07:42] LABS: LYMPHOCYTES 4 % (15-50); MONOCYTES 3 % (2-11); NEUTROPHILS 87 % (40-80); PLATELET ESTIMATE NORMAL
--- NOTE | 2019-09-10 09:56 | OP ---
PATIENT NAME: BEBO COATES MEDICAL RECORD: [id number] :49 LOCATION:[facility] [place].CV01 ADMISSION DATE:09/07/19 SURGEON: PEÑA HAM MD DATE OF OPERATION: 09/09/2019 SURGEON: Peña Ham MD MACHINE SHOP REPAIR TECHNICIAN: None. PROCEDURE PERFORMED: Right thoracotomy, resection of abscess cavity, decortication, bronchoscopy. PREOPERATIVE DIAGNOSIS: Right lower lobe lung abscess and empyema. POSTOPERATIVE DIAGNOSIS: Right lower lobe lung abscess and empyema. ANESTHESIA: General endotracheal anesthesia, double lumen. COMPLICATIONS: None. SPECIMENS: 1. Abscess cavity fluid. 2. Abscess cavity debris. 3. Wall of abscess cavity. 4. Pleural peel. BLOOD LOSS: 200 cc. CONDITION: Stable. DISPOSITION: ICU. OPERATIVE FINDINGS: 1. Difficult single lumen intubation due to neck fusion requiring the scope, but eventually able to be changed over to a double lumen tube with somewhat diminished oximetry with the left lung inflated only, requiring intermittent inflation of the right lung. 2. Dense pleural reaction with a 1 cm long abscess that had ruptured at about 100 cc of creamy white pus. The abscess cavity was resected, but most of the lower lobe appeared to be viable lung tissue and therefore a lower lobectomy was not performed. Good reexpansion was noted and Progel was used along the fissure and the superior segment of the right lower lobe at sites of visceral pleural debridement. One 2 cm opening at the pleura was repaired with a single PDS suture and the upper and middle lobes were fully freed and decorticated with good reexpansion. 3. Bronchoscopy with mucus and a small amount of blood-tinged material due to the difficult intubation. OPERATIVE INDICATION: Lung abscess and empyema. PROCEDURE NOTE IN DETAIL: The patient was brought to the operating suite, intubated as above, placed in left lateral decubitus position with appropriate padding. Right posterolateral thoracotomy was performed. A section of the 7th rib was removed to allow sixth interspace thoracotomy, difficulty of obtaining free space in the pleural cavity. The abscess cavity was entered. Pus was OPERATIVE REPORT [id number] BEBO COATES removed and cultured. The lung was freed. Some of the posterior parietal pleura was resected. The abscess cavity was densely adherent along the lower costal margin and along the diaphragm and was fully freed, repair of the diaphragm with single suture. The upper and middle lobes were freed as were their fissures. Section of the edge of the abscess cavity that appeared to be devitalized tissue was removed with a staple device, but the remainder of the lower lobe reinflated well. Hemostasis was assured. Thorough antibiotic irrigation was performed. Drains were placed apically and inferiorly. Progel was used along the superior segment of the right lower lobe. Wound was closed with pericostal sutures, two muscle layers, subcutaneous and subcuticular. The patient was brought to the supine position, tube exchange for a single tube and bronchoscopy performed visualizing all lobar and segmental bronchi with no endobronchial lesions. No purulent debris and some mucus and bloody stained material in the right side, which was irrigated away. Stable to the CV ICU. TRANSINT:[id number] Voice Confirmation ID: [id number] DOCUMENT ID: [id number] PEÑA HAM MD at 0956 CC: VALENTINE NELSON MD and SHEILA ALLISON [id number] DICTATION DATE: 09/09/19 1449 CHOKER SETTER: 09/09/19 1611 ADM IN [facility] [address] [place] [address]
--- NOTE | 2019-09-10 11:58 | NUR ---
0730-RECIEVED AWAKE AND ALERT-O2 AT 2L-CT TO 20CM-NO AIRLEAK NOTED AT THIS TIME RESPIRATION REG AND EVEN-SR ON MONITOR 0830-DR ALLISON AT BEDSIDE-SPOKE WITH PT REGARDING FINDINGS AT OR AND PLANNED COURSE OF TREATMENT-PT STATED PAIN DISCOMFORT TO R SHOULDER-ONLY 0930-PHYSICAL THERAPY AT BEDSIDE-ASSISTED TO SIDE OF BED-POOR TOERANCE WITH PT-INCREASED PAIN-TO R SHOULDR AREA-STATED TLLLI-DTT-294/98-DR HAM ARRIVED AT BEDSIDE FOR ROUND-HALTED TRANSFER OF PT TO CHAIR-ASSISTED TO SUPINE-[id number] IVP GIVEN FOR BREAK THROUGH PAIN-SPOKE WITH PT AND REGARDING CURRENT CONDITION AND COURSE OF TREATMENT AT THIS TIME 1020-PT STATED R FOOT HEEL PAIN 10-NOTED FIBERGLASS CAST IN PLACE-NOT ABLE TO ASSESS [id number] COMERAGE-DR ALLISON NOTIFIED OF SAME RETURN CALL FROM DR ALLISON TO REMOVE CAST AND REPLACE DRG WITH SOFT KERLIX WRAP- R LEG CAST REMOVED WITH ORTHOSAW-NOTED BALL OF LARGE TOE HAS OPEN WOUND DIAMETER SIZE PENCIL ERASER-DEPTH 1.5CM APPRX-ABLE TO VISUALIZE CLEAN TISSUE WITH STRAW COLOURING AND NO DRAINAGE-RINGED ON SKIN WITH FLOURECENT PURPLE TINCTURE-NO OTHER SKIN DISCLOLOURATION-OR ABRAHSION-TO SKIN-WRAPPED WITH KERLIX GAUZE -PT STATED PAIN RELIEVED TO EXTREMITY-ELEVATED AT PT DIRECTION BY
[2019-09-10 18:08] LABS: ACID FAST SMEAR Negative (()); AFB SPECIMEN PROCESSING Concentration (())
--- NOTE | 2019-09-10 18:30 | NUR ---
1045-R RADIAL ALEX D/C- ORDERED-R PERIPHERAL IV D/C--PT REQUESTED CATHETER TO STAY- 1330-UP TO CHAIR WITH PHYSCIAL THERAPY 1600-ASSISTED PT TO BED -R LATERAL CHEST TUBES-20CM NO AIR LEAK AT THIS TIME NOTED
--- NOTE | 2019-09-10 19:00 | NUR ---
SHIFT ASSESSMENT COMPLETE. PT'S AT BEDSIDE. PT IS A&O X4 WITH NO COMPLAINTS OF PAIN OR DISCOMFORT AT THIS TIME. PERRLA, 3 MM, BRISK REACTION TO LIGHT. RR EVEN AND UNLABORED, CLEAR BREATH SOUNDS HEARD BILAT IN UPPER LOBES, CRACKLES IN THE REMAINING LOBES. INSTRUCTED TO THE PT TO TCDB, WEAK EFFORT ON COUGHING. EXPRESSED THE IMPORTANCE OF THE EXERCISE. IS USE X10, GOOD EFFORT, 1000 ML INSPIRED. S1S2 AUDIBLE, HR 97 BPM, NSR SHOWING ON MONITOR. RT IJ CVL INFUSING VANCOMYCIN @ 125 ML/HR. RT CHEST TUBES X2, LABELED "A" & "P," 20 CM SUCTION, NO AIR LEAK DETECTED, DRESSING CDI. RADIAL PULSES PALP. ABD DISTENDED, SOFT TO TOUCH, NO PAIN OR TENDERNESS NOTED, BS ACTIVE X4. NUNEZ CATH INTACT DRAINING MG URINE. CLAUDIO/SCDs ON AND FUNCTIONING. R FOOT DRESSING CDI, R SECOND TOE AMPUTATION NOTED. PEDAL PULSES PALP. CALL LIGHT IN REACH, HE DENIES ANY NEEDS AT THIS TIME. VSS, BED IN LOWEST POSITION, SEE FLOWSHEET FOR FURTHER DETAILS. WILL CONT WITH POC.
--- NOTE | 2019-09-10 21:00 | NUR ---
AT BEDSIDE. PT SITTING UP IN BED WATCHING TV, HE IS IN GOOD SPIRITS. PM MEDS TAKEN WITHOUT DIFFICULTY. EDUCATION PROVIDED ON MEDICATION. IS USE X10. WEAK EFFORT WITH TCDB EXERCISE, WILL CONT TO ENCOURAGE COUGHING. CALL LIGHT IN REACH, WILL CONT TO MONITOR CLOSELY.
--- NOTE | 2019-09-10 23:00 | NUR ---
REASSESSMENT COMPLETE. PT STATES THAT HE IS HAVING 6/10 PAIN, GENERALIZED. HE DESCRIBES IT ACHEING, BREAKTHROUGH. 2 MG MORPHINE ADMIN PER PRN ORDERS. TCDB WITH RT, GOOD EFFORT, IS USE X10, 1000 ML INSPIRED. NO FURTHER CHANGES IN PT CONDITION. VSS. CALL LIGHT IN REACH, WILL CONT TO MONITOR CLOSELY.
[2019-09-11] VITALS (24 sets, daily range): BP systolic 115–145; BP diastolic 62–77
--- NOTE | 2019-09-11 01:05 | NUR ---
PT RESTING WITH NO SIGNS OF ACUTE DISTRESS NOTED. VSS. CALL LIGHT IN REACH, PT STATES THAT HE IS NOT IN ANY PAIN AT THIS TIME. NO NEEDS. WILL CONT WITH POC.
--- NOTE | 2019-09-11 03:00 | NUR ---
REASSESSMENT COMPLETE. NO CHANGES IN PT CONDITION. ENCOURAGED CTDB, WEAK COUGH EFFORT. CRACKLES HEARD BILAT THROUGHOUT MIDDLE AND LOWER LOBES. NO FURTHER CHANGES IN PT CONDITION. VSS. CALL LIGHT IN REACH, WILL CONT WITH POC.
--- NOTE | 2019-09-11 05:00 | NUR ---
OFFERED CHG BATH. PT STATED THAT HE WOULD LIKE TO WAIT UNTIL HIS GETS HERE TO DO THE BATH. REPOSITIONED FOR COMFORT. FAN TURNED ON. REFRESHMENTS BROUGHT TO BEDSIDE. NO FURTHER NEEDS AT THIS TIME. WILL CONT WITH POC.
[2019-09-11 06:32] LABS: BASOPHILS 0.1 % (0-2); EOSINOPHILS 0.9 % (0-7); HEMOGLOBIN 11.2 g/dL (13.5-17.5); IMMATURE GRANULOCYTES 3.9 % (0-5); LYMPHOCYTES 5.2 % (15-50); MCH 26.8 pg (26.0-34.0); MCHC 30.3 g/dL (31.0-37.0); MCV 88.5 fL (80.0-100.0); MEAN PLATELET VOLUME 9.9 fL (7.4-10.4); MONOCYTES 8.2 % (2-11); NEUTROPHILS 81.7 % (40-80); PLATELET COUNT 292 10x3/uL (130-400); RBC 4.18 10x6/uL (4.20-6.10); RDW 15.2 % (11.5-14.5); WBC 19.3 10x3/uL (4.8-10.8)
[2019-09-11 06:54] LABS: ALBUMIN 1.9 g/dL (3.4-5.0); ALKALINE PHOSPHATASE 59 U/L (46-116); ALT (SGPT) 17 U/L (10-68); BILIRUBIN - TOTAL 0.48 mg/dL (0.2-1.3); CALC OSMOLALITY 272 mosm/kg (275-300); CALCIUM 8.4 mg/dL (8.5-10.1); CARBON DIOXIDE 31.7 mmol/L (21.0-32.0); CHLORIDE - SERUM 99 mmol/L (98-107); GLUCOSE 141 mg/dL (74-106); POTASSIUM - SERUM 4.2 mmol/L (3.5-5.1); PROTEIN - SERUM 6.4 g/dL (6.4-8.2); SODIUM 135 mmol/L (136-145); UREA NITROGEN 16 mg/dL (7-18); eGFR NON AFRICAN AMERICAN 78 mL/min (90-120)
--- NOTE | 2019-09-11 14:23 | NUR ---
0715-RECIEVED AWAKE AND ALERT-NOTED PRODUCTIVE COUGH- 0900 ASSISTED WITH BREAKFEST TRAY 1015-DR ALLEN AT BEDSIDE AND REMOVED R FOOT KERLIX -NON ADHESIVE DRG APPLIED-KERLIX WRAP LOOSE-AND LEG ELEVATED 1330-ASSISTED TO BED-TOLERATED WELL-ON ROOM AIR
--- NOTE | 2019-09-11 19:00 | NUR ---
REPORT RECEIVED CARE ASSUMED ASSESSMENT DONE SEE FLOW SHEET VSS. ROOM FREED OF CLUTTER. CANISTERS EMPTIED.
--- NOTE | 2019-09-11 21:00 | NUR ---
COMPLETE BED BATH GIVEN LINEN CHANGE PROVIDED. SCD PUT IN PLACE. BED CHANGED. MEDS GIVEN PER DEC.
--- NOTE | 2019-09-11 23:03 | NUR ---
REASSESSMENT COMPLETE VSS NO SIGNS OF ACUTE DISTRESS NOTED.
[2019-09-12] VITALS (24 sets, daily range): BP systolic 120–150; BP diastolic 60–78
--- NOTE | 2019-09-12 01:03 | NUR ---
PT RESTING IN BED COMFORTABLEY VSS WILL CONTINUE TO MONITOR.
--- NOTE | 2019-09-12 03:00 | NUR ---
REASSESSMENT DONE SEE FLOW SHEET VSS
--- NOTE | 2019-09-12 05:00 | NUR ---
IO COLLECTED DAILY WEIGHT COLLECTED VSS
[2019-09-12 05:40] LABS: BASOPHILS 0.1 % (0-2); EOSINOPHILS 0.9 % (0-7); HEMOGLOBIN 10.9 g/dL (13.5-17.5); IMMATURE GRANULOCYTES 3.6 % (0-5); LYMPHOCYTES 5.3 % (15-50); MCHC 31.1 g/dL (31.0-37.0); MCV 86.6 fL (80.0-100.0); MEAN PLATELET VOLUME 10.2 fL (7.4-10.4); MONOCYTES 7.3 % (2-11); NEUTROPHILS 82.8 % (40-80); PLATELET COUNT 316 10x3/uL (130-400); RBC 4.04 10x6/uL (4.20-6.10); WBC 17.7 10x3/uL (4.8-10.8)
[2019-09-12 06:06] LABS: ALBUMIN 1.8 g/dL (3.4-5.0); ALKALINE PHOSPHATASE 61 U/L (46-116); ALT (SGPT) 18 U/L (10-68); BILIRUBIN - TOTAL 0.58 mg/dL (0.2-1.3); CALC OSMOLALITY 272 mosm/kg (275-300); CALCIUM 8.4 mg/dL (8.5-10.1); CARBON DIOXIDE 32.7 mmol/L (21.0-32.0); CHLORIDE - SERUM 98 mmol/L (98-107); CREATININE - SERUM 0.9 mg/dL (0.6-1.3); GLUCOSE 129 mg/dL (74-106); POTASSIUM - SERUM 3.6 mmol/L (3.5-5.1); PROTEIN - SERUM 6.3 g/dL (6.4-8.2); SODIUM 135 mmol/L (136-145); UREA NITROGEN 15 mg/dL (7-18); eGFR NON AFRICAN AMERICAN 88 mL/min (90-120)
--- NOTE | 2019-09-12 07:12 | NUR ---
SHIFT REPORT RECEIVED. PT RESTING IN BED. ALERT AND ORIENTED. REPORTS PAIN 4/10 INCISIONAL. ON ROOM AIR. RIJ CVL SALINE LOCK. CT X 2 ON RIGHT LATERAL SIDE TO 20CM SUCTION. NO AIR LEAK NOTED. NUNEZ IN PLACE WITH CONCENTRATED YELLOW URINE NOTED. ICE WATER PROVIDED. COMPLETE ASSESSMENT CHARTED IN FLOWSHEET. SIDE RAILS UP X 2, BED LOW POSITION. CALL LIGHT IN REACH. WILL CONTINUE TO MONITOR.
--- NOTE | 2019-09-12 09:13 | NUR ---
SITTING UP IN CHAIR. AM MEDS GIVEN. ATE ABOUT 40% OF BREAKFAST. DENIES OTHER NEEDS AT THIS TIME. WILL CONTINUE TO MONITOR.
[2019-09-12 11:09] LABS: FUNGUS STAIN Final report (())
--- NOTE | 2019-09-12 12:25 | NUR ---
Nutrition Follow-up: Pt reports appetite is "terrible". RN reports pt ate ~40% of breakfast this AM. Likes yogurt. Agreed to Ensure BID. Diet: Regular PO intake: 40-50% Wt: 233# Last BM: 09/08 per chart Labs reviewed Meds reviewed -+Ensure BID, yogurt with meals -RD following.
--- NOTE | 2019-09-12 13:13 | NUR ---
Pt has a nonhealing surgical wound on plantar aspect of right foot. He states he had surgery on it nearly a year ago and it has not completely healed. The wound measures 1cm x 1cm x 0.3cm. The wound bed is pink. There is no odor or drainage noted. Cleansed and covered with adaptic, 4x4s and secured with kerlix. Pt tolerated well.
--- NOTE | 2019-09-12 15:00 | NUR ---
RESTING COMFORTABLY IN CHAIR. LEGS ELEVATED. EXTRA PILLOW PROVIDED FOR COMFORT. NO ACUTE CHANGES FROM PREVIOUS ASSESSMENT. WILL CONTINUE TO MONITOR.
--- NOTE | 2019-09-12 19:45 | NUR ---
SHIFT ASSESSMENT COMPLETE AND PATIENT BACK TO BED. PATIENT TOLERATED TRANSFER WELL WITH NO COMPLAINTS. CALL LIGHT WITHIN REACH, BED IN LOW POSITION.
[2019-09-13] VITALS (18 sets, daily range): BP systolic 111–151; BP diastolic 61–82
--- NOTE | 2019-09-13 01:27 | NUR ---
SP02 88-90% ON RA. O2 PLACED AT 2L VIA NC WHILE ASLEEP.
--- NOTE | 2019-09-13 10:33 | NUR ---
0700 PT RECIEVED ON ROOM AIR ALERT AND ORIENTED VSS DENIES PAIN, R IJ CVL DRESSING CDI, R LAT CHEST WITH CT TO SUCTION NO AIR LEAK, INCISION SITE CDI, NUNEZ DRAINING YELLOW URINE, ASSISTED UP TO CHAIR 0900 ATE BREAKFAST, ASSISTED BACK TO BED, CTS REMOVED BY DR KANWAL DOVE, LFA 20G PIV INSERTED X1 ATTEMPT, R IJ CVL DCD PER PROTOCOL TIP INTACT, CRITICORE NUNEZ REMOVED TIP INTACT URINAL PROVIDED
--- NOTE | 2019-09-13 17:54 | NUR ---
1200 ATE 25% LUNCH 1500 AMBULATED WITH THERAPY 1700 ATE 25% DINNER 1730 ASSISTED PT WITH [facility] BATH
--- NOTE | 2019-09-13 19:00 | NUR ---
PT UP IN CHAIR, AOX4. UNLABORED RESPIRATIONS, ON ROOM AIR, SPO2 97. LUNG SOUNDS CLEAR/DIMINISHED. S1S2 HEARD, PERIPHERAL PULSES PRESENT. BOWEL SOUNDS ACTIVE IN ALL QUADRANTS. RT CHEST DRSG CDI. PT DENIES PAIN AT THIS TIME. REQUESTS TO REMAIN UP IN CHAIR AT THIS TIME. CALL LIGHT AND BEDSIDE TABLE WITHIN PT REACH, VSS. CPOC.
--- NOTE | 2019-09-13 20:00 | NUR ---
FAMILY AT BEDSIDE, UPDATE PROVIDED, NO QUESTIONS AT THIS TIME. PT REQUESTS TO BE PLACED BACK TO BED, MINIMAL ASSISTANCE REQUIRED. POSITIONED WITH PROMINENCES BRIDGED. VSS, DENIES NEEDS. CALL LIGHT AND BEDSIDE TABLE WITHIN PT REACH. CPOC.
--- NOTE | 2019-09-13 21:50 | NUR ---
FRESH WATER TO BEDSIDE, HS MEDS GIVEN WITHOUT DIFFICULTY. PT REPOSITIONED FOR COMFORT, PROMINENCES BRIDGED. VSS, DENIES FURTHER NEEDS. CALL LIGHT AND BEDSIDE TABLE WITHIN PT REACH. CPOC.
--- NOTE | 2019-09-13 23:30 | NUR ---
PT SLEEPING QUIETLY WITH UNLABORED RESPIRATIONS, VSS, NO S/S OF PAIN OR ACUTE DISTRESS NOTED. PT REPOSITIONED SELF INDEPENDENTLY. CALL LIGHT AND BEDSIDE TABLE WITHIN PT REACH. CPOC.
[2019-09-14] VITALS (11 sets, daily range): BP systolic 117–141; BP diastolic 62–82
--- NOTE | 2019-09-14 01:00 | NUR ---
PT REPOSITIONED SELF INDEPENDENTLY. DENIES NEEDS AT THIS TIME. VSS, NO C/O PAIN. CALL LIGHT AND BEDSIDE TABLE WITHIN PT REACH. CPOC.
--- NOTE | 2019-09-14 03:30 | NUR ---
NO CHANGES AT THIS TIME. PT RESTING QUIETLY WITH UNLABORED RESPIRATIONS. NO S/S OF ACUTE DISTRESS OR PAIN. DENIES NEEDS. REPOSITIONS SELF INDEPENDENTLY. CALL LIGHT AND BEDSIDE TABLE WITHIN PT REACH. CPOC.
[2019-09-14 04:16] LABS: BASOPHILS 0.2 % (0-2); EOSINOPHILS 1.5 % (0-7); HEMATOCRIT 34.3 % (42.0-54.0); HEMOGLOBIN 10.7 g/dL (13.5-17.5); IMMATURE GRANULOCYTES 4.6 % (0-5); LYMPHOCYTES 11.1 % (15-50); MCH 26.8 pg (26.0-34.0); MCHC 31.2 g/dL (31.0-37.0); MEAN PLATELET VOLUME 9.5 fL (7.4-10.4); MONOCYTES 7.2 % (2-11); NEUTROPHILS 75.4 % (40-80); PLATELET COUNT 337 10x3/uL (130-400); RBC 3.99 10x6/uL (4.20-6.10); RDW 15.2 % (11.5-14.5); WBC 15.1 10x3/uL (4.8-10.8)
[2019-09-14 04:30] LABS: CALC OSMOLALITY 275 mosm/kg (275-300); CALCIUM 8.3 mg/dL (8.5-10.1); CARBON DIOXIDE 34.6 mmol/L (21.0-32.0); CHLORIDE - SERUM 100 mmol/L (98-107); GLUCOSE 124 mg/dL (74-106); POTASSIUM - SERUM 3.6 mmol/L (3.5-5.1); SODIUM 137 mmol/L (136-145); UREA NITROGEN 16 mg/dL (7-18); eGFR NON AFRICAN AMERICAN 78 mL/min (90-120)
--- NOTE | 2019-09-14 06:00 | NUR ---
PT AWAKE AND ALERT, VSS, DENIES PAIN. FRESH WATER TO BEDSIDE. PT REPOSITIONS SELF INDEPENDENTLY. DENIES NEEDS CALL LIGHT AND BEDSIDE TABLE WITHIN PT REACH. CPOC.
--- NOTE | 2019-09-14 07:00 | NUR ---
AWAKES EASILY. BREATHING TX IN PROGRESS. DENIES PAIN EXCEPT WHERE CHEST TUBES WHERE, AND MAINLY WHEN HE COUGHS. IV LEFT FOREARM SALINE LOCK NO REDNESS OR SWELLING NOTED. VOIDED CLEAR MG IN URINAL.
--- NOTE | 2019-09-14 08:01 | NUR ---
UP IN CHAIR AT BEDSIDE AMBULATED TO CHAIR WITH WALKER AND MINIMAL ASSISTANCES. BREAKFAST TRAY SERVED. CALL LIGHT IN LAP. NO DISTRESS.
--- NOTE | 2019-09-14 10:00 | NUR ---
AMBULATED IN [facility] PER PHYSICAL THERAPY. TOLERATED WELL. STILL WEAK WHEN GETTINGUP AND DOWN.
--- NOTE | 2019-09-14 11:30 | NUR ---
LUNCH TRAY SERVED ATE FAIR.
--- NOTE | 2019-09-14 12:16 | NUR ---
Nutrition Follow-up: Pt continues to report "no appetite". C/o metallic taste 2/2 meds. Drinking Ensure BID. reports pt has had decreased appetite and 30# wt loss since Jun. Noted and discussed elevated Glu; pt agreed to try Glucerna with dinner tonight. Diet: Regular, Ensure BID Wt: 224# (233# on 09/12) Last BM: 09/13 per pt Labs noted: Glu 124, A1C 6.3 Meds noted: Miralax, Vancomycin -May consider diabetic diet 2/2 A1C 6.3. -Encourage PO intake. -May consider appetite stimulant. -RD following.
--- NOTE | 2019-09-14 12:30 | NUR ---
RETURNED TO BED. WITH ASSISTANCES. USING WALKER TO TRANSFER. DRESSING DRY AND INTACT. DENIES PAIN. HEAD OF BED ELEVATED 30. DRESSING RIGHT FOOT DRY AND INTACT.
--- NOTE | 2019-09-14 14:30 | NUR ---
REPORT CALLED TO CAROLIN. PATIENT TO TRANSFER TO ROOM 2113.
--- NOTE | 2019-09-14 14:45 | NUR ---
DRESSING ROOT FOOT REMOVED. OPEN AREA UNDER GREAT TOE JOINT 1 CM X .75 CM. NO DEPTH NOTED. NO DRAINAGE. PURPLE SPRAY ON FOOT. NO OTHER OPEN AREAS NOTED. ADAPTIC APPLIED 4X4 X 3 APPLIED WRAPPED IN KERLIX. DRESSING RIGHT LATERAL SIDE REMOVED SOME OLD DARK GILBERT DRAINAGE NOTED NO ODOR. ADAPTIC REPLACED 4X4 APPLIED SECURE WITH TERADERM. PATIENT TOLERATED FAIR.
--- NOTE | 2019-09-14 15:15 | NUR ---
HERE PATIENT UP IN WHEEL CHAIR TRANSFERED TO ROOM 2113 TOLERATED WELL. NO DISTRESS.
--- NOTE | 2019-09-14 15:37 | NUR ---
HE WAS TRANSFERRED FROM CVICU VIA W/C. ALERT AND ORIENT ABLE TO VOICE NEEDS RESP EVEN WITHOUT LABOR. HE HAS DRESSING TO RIGHT SIDE OF NECK, FRONT OF RIGHT CHEST, UNDER HIS RIGHT AXILLA EXTENDING TO HIS BACK ALL DRESSING ARE INTACT, RIGHT FOOT WITH DRESSING INTACT UP ON HEEL PROTECTOR. SUCTION WAS SET UP AT BEDSIDE PER HIS REQUEST TO BE ABLE TO SUCTION HIS MOUTH OUT PRN. LEFT F/A SALINE LOCK INTACT. BBS ARE CLEAR ABDOMEN IS DISTENDED BUT HE HAS BOWEL SOUNDS PRESENT. O2 SAT ON R/A IS 95% ON R/A. B/P 128/69, 97.8 HR 75. ORIENT TO USE OF CL. BED IN LOWEST POSITION AND LOCKED. CAREPLAN IN PLACE. HE DENIES ANY CURRENT PAIN.
--- NOTE | 2019-09-14 19:10 | NUR ---
PT SITTING UP IN BED. CL IN REACH. DENIES NEEDS AT THIS TIME. BED IN LOW SIDE RAILS X2. AT BEDSIDE. A/O X4. RESP EVEN AND UNLABORED. BOWEL ACTIVE X4. LUNGS CLEAR. WILL CONTINUE TO MONITOR.
[2019-09-15] VITALS: BP 130/76
--- NOTE | 2019-09-15 02:17 | NUR ---
I have reviewed this patient and I concur with the Shift Assessment completed by the Licensed Practical Nurse today this shift.
[2019-09-15 04:00] VITALS: BP 139/77
--- NOTE | 2019-09-15 07:39 | NUR ---
PATIENT IS RESTING QUIETLY ON HIS BACK AT THIS TIME. DENIES ANY NEEDS RIGHT NOW. AT BEDSIDE.
[2019-09-15 08:00] VITALS: BP 137/73
[2019-09-15 12:17] VITALS: BP 118/63
[2019-09-15 16:08] LABS: FUNGUS MYCOLOGY CULTURE Preliminary report (())
[2019-09-15 16:32] VITALS: BP 130/68
--- NOTE | 2019-09-15 19:15 | NUR ---
RECEIVED REPORT, WILL ASSUME CARE OF PT, COMPLAINS OF PAIN, BUT WANTS TO WAIT UNTIL BEDTIME, FAMILY AT BEDSIDE, BED IS LOW, SRX2, CALL LIGHT IN REACH, WILL CONTINUE PLAN OF CARE
[2019-09-15 20:00] VITALS: BP 130/70
--- NOTE | 2019-09-15 21:15 | NUR ---
PT WANT TO TALE RESTORIL LATER
[2019-09-16] VITALS: BP 125/75
--- NOTE | 2019-09-16 02:43 | NUR ---
I have reviewed this patient and I concur with the Shift Assessment completed by the Licensed Practical Nurse today this shift.
[2019-09-16 04:00] VITALS: BP 142/77
--- NOTE | 2019-09-16 07:30 | NUR ---
A/A/0X4. DENIES ANY NEEDS OR REQUESTS AT PRESENT TIME. DRESSING TO MID RIGHT BACK AND RIGHT SIDE C/D/I. DRESSING TO RIGHT FOOT C/D/I AND FOOT RESTING ON HEEL PROTECTOR. ASSESSMENT COMPLETED AND WILL CONTINUE POC.
[2019-09-16] MEDS ORDERED: CYTOTEC200 MCG PO (08:14)
[2019-09-16] MEDS ORDERED: MUCINEX DM ER1 EAC1 PO (08:14)
[2019-09-16] MEDS ORDERED: MIRALAX17 GM PO (08:14)
[2019-09-16] MEDS ORDERED: AUGMENTIN 875-11 TAB PO (08:15)
[2019-09-16] MEDS ORDERED: HYDROCODON-ACE1 EAC7 PO (08:16)
[2019-09-16] MEDS ORDERED: ASPIRIN EC81 M1 PO (08:17)
[2019-09-16 08:55] VITALS: BP 138/69
--- NOTE | 2019-09-16 08:56 | MORECARE ---
CASE MANAGEMENT DISCHARGE SUMMARY PATIENT: BEBO COATES UNIT: [id number] ADM DATE: 09/07/19 AGE: 74 : [birth year] SEX: M ROOM/BED: D.2113 AUTHOR: DEBBY,DOC PHYSICIAN: REFERRING PHYSICIAN: SHEILA ALLISON MD DATE OF SERVICE: 09/16/19 Discharge Plan Patient Name: BEBO COATES Facility: [facility]:[place] : 1945 Planned Disposition: Home Anticipated Discharge Date: 09/16/19 Discharge Date: Expected LOS: 9 Initial Reviewer: [email or web address] Initial Review Date: 09/09/2019 Generated: 09/16/19 9:55 am Comments DCP- Discharge Planning Updated by [email or web address]: Bong Duran on 09/16/19 7:[address] Patient Name: BEBO COATES Encounter No: [id number] : 1945 Primary Insurance: MEDICARE A & B Anticipated DC Date: 09-16-2019 Planned Disposition: Home DCP follow-up note: CM MET WITH PT IN ROOM TO DISCUSS DISCHARGE NEEDS AND PLANNING. CM DISCUSSED AVAILABILITY OF HOME HEALTH, REHAB SERVICES AND MEDICAL EQUIPMENT. PT DENIES DISCHARGE NEEDS. SPOUSE TO TRANSPORT HOME AT DISCHARGE. IMPORTANT MESSAGE FROM MEDICARE PROVIDED AND EXPLAINED. WATER METER MECHANIC NURSE NOTIFIED. LU Parkinson DCP- Discharge Planning Updated by [email or web address]: Roshni Otero on 09/09/19 6:[address] Patient Name: BEBO COATES Admission Status: Elective Accout number: [id number] Admission Date: 09-07-2019 : 1945 Admission Diagnosis: Attending: SHEILA ALLISON Current LOS: 2 Anticipated DC Date: Planned Disposition: Home Primary Insurance: MEDICARE A & B Discharge Planning Comments: CM met with patient at bedside after explaining CM role and obtaining verbal consent. Patient lives at home with his Amy where he is independent with his care and plans to return there upon discharge. Patient feels this would be a safe discharge. CM discussed availability / needs of home health and medical equipment. Patient denies any discharge needs at this time. Patient states he will have his family drive him home upon discharge. Patient may need walk test if 02 required upon discharge. CM will continue to follow and assist as needed with discharge planning / needs. Deep Sea Diver: Roshni RECINOSA - Discharge Planning Initial Assessment Updated by [email or web address]: Roshni Otero on 09/09/19 7:21 pm * Is the patient Alert and Oriented? Yes * PCP FRISIAN * Pharmacy [facility] * Preadmission Environment Home with Family * ADLs Independent * Other Equipment WALKING BOOT * List name and contact numbers for known caregivers / representatives who currently or will assist patient after discharge: AMY COATES - - [phone] * Verbal permission to speak to the caregivers and representatives has been obtained from the patient. Yes * Community resources currently utilized None * Additional services required to return to the preadmission environment? No * Can the patient safely return to the preadmission environment? Yes * Has this patient been hospitalized within the prior 30 days at any hospital? No Coverage Notice Reviewer: [id number] Pattie Duran Notice Issued Date-Time: 09/16/2019 8:45 Notice Type: IM Discharge Notice Notice Delivered To: Patient Relationship to Patient: Supply Crib Attendant Name: Delivery Method: HAND - Hand Delivered Mirtha Days: Prior Verbal Notification: Recipient Understood Notice: Yes Recipient Signature: Yes Med Rec Note Co-signed by Attending: Coverage Notice Comment: Last DP export: 09/09/19 6:28 Patient Name: BEBO COATES Page [id number] at 0856 All edits/amendments must be made on the electronic document DICTATION DATE: 09/16/19854 INTERNATIONAL EDITORIAL PRODUCER: NANCY 09/16/19 0855 RPT#: [id number] DC DATE: STATUS: ADM IN [facility] [address] [place] [address] END OF REPORT
--- NOTE | 2019-09-16 11:15 | NUR ---
DISCHARGE INSRUCTIONS REVIEWED WITH PT AND VERBALIZES UNDERSTANDING WITH NO QUESTIONS. SL REMOVED FROM LEFT FA WITH CATH TIP INTACT. DRESSING TO INCISION LEFT MID BACK REMOVED AND INCISION IS C/D/I. DRESSING TO CHEST TUBE SITE CHANGED AND AREA IS C/D/I. CLEAN DRESSING PLACED TO PREVIOUS IV SITE RIGHT NECK. LEFT FLOOR VIA W/C WITH ALL PERSONAL BELONGINGS AND LEFT FACILTIY VIA PRIVATE VEHICLE WITH HIS .
--- NOTE | 2019-09-16 13:39 | NUR ---
AGREE WITH QUALITY ASSURANCE SUPERVISOR FINAL ASSESSMENT OF PT PRIOR TO DISCHARGE.
--- NOTE | 2019-09-18 09:05 | DS ---
PATIENT:BEBO COATES :[birth year] MEDICAL RECORD: [id number] DISCHARGE SUMMARY ADMISSION DATE: 09/07/19 DISCHARGE DATE: 09/16/19 DISCHARGE DIAGNOSES: Right lower lobe lung abscess with Streptococcus; community-acquired pneumonia, status post right thoracotomy decortication, resection of abscess cavity and bronchoscopy; adult-onset diabetes mellitus; acute hypoxic and hypercapnic respiratory failure, improved; right foot ulcer, chronic; cardiomyopathy with ejection fraction of 35%, etiology unknown; essential hypertension; hypersensitivity lung disease; neuropathy; benign prostatic hyperplasia. HOSPITAL COURSE: A 74-year-old male who had been treated for inpatient-outpatient pneumonia. Initial improvement and then developed fever, night sweats and right lower lobe abscess. He was admitted, seen by cardiovascular surgery after CT scan showed evidence of abscess cavity. He underwent thoracotomy, decortication, resection of abscess cavity and bronchoscopy per Dr. Thompson. He was in the CV ICU with respiratory therapy and consult with pulmonary. The patient was slow to recover, but improved, received broad-spectrum IV antibiotics for 7 days. His cultures initially had been negative. There is a small colony of strep growing, which has been referred to outpatient lab. He is now walking the halls without difficulty, off of oxygen, having minimal pain, desires discharge today. He will be discharged today on oral Augmentin with follow up in my office in 1 week with chest x-ray, CBC and BMP. DISCHARGE MEDICATIONS: Flomax 0.4 mg p.o. daily, Augmentin 875 mg p.o. b.i.d. for 7 days, Lopressor 25 mg p.o. b.i.d., Lipitor 10 mg with evening meal, Coreg 3.125 mg p.o. b.i.d., diltiazem XT 120 capsule p.o. b.i.d., Restoril 15 mg 1 p.o. at bedtime for sleep, Ecotrin 325 mg p.o. daily, hydrocodone 5/325 one every 6 hours for pain, #30, no refills, Mucinex 600 mg p.o. b.i.d., Cytotec 200 mcg p.o. every morning, MiraLax 17 grams p.o. daily. ACTIVITY: No driving. Return to clinic, Dr. Thompson in 10 days. DIET: ADA. TRANSINT:[id number] Voice Confirmation ID: [id number] DOCUMENT ID: [id number] SHEILA ALLISON MD at 0905 CC: [id number] DICTATION DATE: 09/16/19811 GRAIN PICKER: 09/16/19 1048 DIS IN 09/16/[address] [facility] [address] [place] [address]
[2019-09-18 16:07] LABS: AEROBE ID Final report (())
== END 2019-09-16 11:45 | disposition home or self-care (01) | DRG 164 ==
LOC: D.CT 10:28 → D.MS 13:07 → D.CVICU 13:07 → D.M2 09-14 15:21
PROVIDERS: Internal Medicine Pulmonary Disease; Thoracic Surgery (Cardiothoracic Vascular Surgery); ADMIT Family Medicine; ATTEND Family Medicine
PROC: 0BBF0ZZ Excision of Right Lower Lung Lobe, Open Approach (ICD-10-PCS; 2019-09-09)
PROC: 0BJ08ZZ Inspection of Tracheobronchial Tree, Via Natural or Artificial Opening Endoscopic (ICD-10-PCS; 2019-09-09)
PROC: 0BNF0ZZ Release Right Lower Lung Lobe, Open Approach (ICD-10-PCS; principal; 2019-09-09 07:30)
DX: J85.1 Abscess of lung with pneumonia (principal); I42.9 Cardiomyopathy, unspecified; E78.5 Hyperlipidemia, unspecified; I25.10 Atherosclerotic heart disease of native coronary artery without angina pectoris; I11.0 Hypertensive heart disease with heart failure; I50.9 Heart failure, unspecified; Z72.89 Other problems related to lifestyle; G62.9 Polyneuropathy, unspecified; J44.9 Chronic obstructive pulmonary disease, unspecified; N40.0 Benign prostatic hyperplasia without lower urinary tract symptoms

== ENCOUNTER → 2019-10-05 15:53 | Outpatient (CLI) | payer MEDICARE, BC ==
[2019-09-08 16:10] VITALS: BMI 26.3
[~2019-10-05 15:53] MED LIST changes: +ASPIRIN EC81 M1 PO; +AUGMENTIN 875-11 TAB PO; +CARTIA XT120 MG PO; +COREG 3.1253.125 MG PO; +CYTOTEC200 MCG PO; +HYDROCODON-ACE1 EAC7 PO; +MIRALAX17 GM PO; +MUCINEX DM ER1 EAC1 PO
== END | disposition home or self-care (01) ==
LOC: D.RAD 15:53
PROVIDERS: ATTEND Thoracic Surgery (Cardiothoracic Vascular Surgery)
DX: Z09 Encounter for follow-up examination after completed treatment for conditions other than malignant neoplasm (principal)

== ENCOUNTER → 2019-10-27 10:37 | Outpatient (CLI) | payer MEDICARE, BC ==
[2019-09-08 16:10] VITALS: BMI 26.3
== END | disposition home or self-care (01) ==
LOC: D.RAD 10:37
PROVIDERS: ATTEND Internal Medicine Pulmonary Disease
DX: Z87.01 Personal history of pneumonia (recurrent) (principal)

== ENCOUNTER 2019-11-01 06:16 | Outpatient (CLI) | payer MEDICARE, BC ==
[2019-10-27 11:58] LABS: BASOPHILS 0.2 % (0-2); HEMATOCRIT 49.5 % (42.0-54.0); HEMOGLOBIN 15.7 g/dL (13.5-17.5); IMMATURE GRANULOCYTES 0.9 % (0-5); LYMPHOCYTES 17.8 % (15-50); MCHC 31.7 g/dL (31.0-37.0); MCV 88.4 fL (80.0-100.0); MEAN PLATELET VOLUME 10.3 fL (7.4-10.4); NEUTROPHILS 69.1 % (40-80); PLATELET COUNT 278 10x3/uL (130-400); RDW 15.3 % (11.5-14.5); WBC 8.7 10x3/uL (4.8-10.8)
[~2019-11-01] VITALS: Ht 198.1 cm; Wt 101.8 kg
--- NOTE | ~2019-11-01 | HEMODYNAMI ---
PATIENT:BEBO COATES MEDICAL RECORD: [id number] : 49 LOCATION:[facility] ADMISSION DATE: 11/01/19 Generatedon:11/01/20198:46 Patient name: BEBO COATES Patient #: [id number] SSN: : 1945 Date of study: 11/01/2019 Page: Of Hemodynamic Procedure Report Patient Data Patient Demographics Procedure consent was obtained First Name: BEBO Gender: Male Last Name: JAXON : 1945 Patient #: [id number] Age: 74 year(s) Race: Unknown Additional ID: [id number] Contact details [address]: [address] [place] [address] State: [place] City: [place] Zip code: [address] Past Medical History Allergies: No known allergies Admission Admission Data Admission Date: 11/01/2019 Admission Time: 6:16 Arrival Date: 11/01/2019 Arrival Time: 0:00 Insurance Payor: Medicare [facility] #: [id number] Height (in.): 77.95 BSA: 2.37 (m2) Height (cm.): 198 BMI: 26.02 (kg/m2) Weight (lbs.): 224.87 Weight (kg.): 102 Lab Results Lab Result Date: 11/01/2019 Lab Result Time: 0:00 Biochemistry Name Units Result Min Max BUN mg/dl 19 --(----)*- 7 18 Creatinine mg/dl 1.2 --(---*)-- 0.6 1.3 eGFR ml/min 63 *-(----)-- 90 120 NONAFRICAN CBC Name Units Result Min Max Hematocrit % 46.5 --(-*--)-- 42 54 Hemoglobin g/dl 14.5 --(*---)-- 13.5 17.5 Procedure Procedure Types Cath Procedure Diagnostic Procedure [facility] w/Coronaries Sedation Charges Moderate Sedation up to 30 minutes PCI Procedure Coronary Stent Coronary Stent Initial x2 Hemochron ACT Test Procedure Description Procedure Date Procedure Date: 11/01/2019 Procedure Start Time: 8:04 Procedure End Time: 8:40 Procedure Staff Name Function Jj Moore MD Performing Physician Lucian Tyler RN Nurse Karen Dudley RT Scrub [facility] RT Monitor Linda Mallory RT Monitor Procedure Data Cath Procedure Fluoroscopy Diagnostic fluoroscopy Total fluoroscopy Time: 9.5 time: 9.5 min min Diagnostic fluoroscopy Total fluoroscopy dose: dose: 1336 mGy 1336 mGy Contrast Material Contrast Material Type Amount (ml) Isovue 370 166 Entry Location Entry Primary Successful Side Size Upsize Upsize Entry Closure Succes sful Closure Location (Fr) 1 (Fr) 2 (Fr) Remarks Device Remarks Femoral Right 5 Fr 6 Fr Exoseal artery Short Estimated blood loss: 10 ml Diagnostic catheters Device Type Used For End Catheter Placement MULTIPACK JL 4.0 5Fr Procedure catheter MULTIPACK 3DRC 5Fr Procedure catheter MULTIPACK Pigtail 5 Fr Procedure catheter Procedure Complications No complications Procedure Medications Medication Administration Route Dosage Oxygen etCO2 Nasal cannula 2 l/min Lidocaine 2% added to field 20 Heparin Flush Bag added to field 2 bags (1000units/500ml NS) 0.9% NaCl I.V. 100 ml/hr Versed I.V. 2 mg Fentanyl I.V. 50 mcg Versed I.V. 1 mg Fentanyl I.V. 50 mcg Heparin Bolus I.V. 79113 units Plavix P.O. 600 mg Hemodynamics Rest BSA: 2.37 (m2) HGB: 14.5 (g/dl) O2 Consumption: Estimated: 269.63 (ml/min) O2 Co nsumption indexed: Estimated:113.77 (ml/min/m) Heart Rate: 66 (bpm) Pressure Samples Time Site Value (mmHg) Purpose Heart Use Rate(bpm) 8:14 LV 111/-2,12 Snapshot 72 8:15 AO 112/56(80) Pullback 72 8:15 LV 111/6,9 Pullback 72 Gradients Valve Time Site 1 Site 2 Mean SEP/DFP Peak To Heart Use (mmHg) (sec/min) Peak Rate (mmHg) (bpm) Aortic 8:15 LV AO 0 5 0 72 111/6,9 112/56(80) Calculations Valve P-P Mean Valve Index Valve Source Name Gradient Area Flow (cm2) Aortic 0 0 0 0 Snapshots Pre Cath Intra NCS Post Cath Vital Signs Time Heart Resp SPO2 etCO2 NIBP (mmHg) Rhythm Pain Sedation Rate (ipm) (%) (mmHg) Status Level (bpm) 7:48:57 66 10 96 0 139/80(118) NSR 0 (11) 10(A) , No pain 7:53:17 64 13 98 34.6 139/81(112) NSR 0 (11) 10(A) , No pain 7:57:35 64 15 96 34.6 132/75(107) NSR 0 (11) 10(A) , No pain 8:01:52 66 15 94 32.4 125/75(95) NSR 0 (11) 10(A) , No pain 8:06:10 65 14 95 34.6 123/72(92) NSR 0 (11) 9(A) , No pain 8:10:23 67 13 94 42.1 117/62(95) NSR 0 (11) 9(A) , No pain 8:14:37 72 14 93 22.6 115/69(91) NSR 0 (11) 9(A) , No pain 8:18:54 72 14 93 21 113/67(88) NSR 0 (11) 9(A) , No pain 8:23:10 70 12 92 34.6 115/65(87) NSR 0 (11) 9(A) , No pain 8:27:24 73 13 93 34.6 119/66(98) NSR 0 (11) 9(A) , No pain 8:31:36 77 14 93 21.8 119/69(97) NSR 0 (11) 9(A) , No pain 8:35:50 73 13 94 33.1 125/65(83) NSR 0 (11) 10(A) , No pain 8:40:08 80 14 93 17.3 116/72(93) NSR 0 (11) 9(A) , No pain Medications Time Medication Route Dose Verified Delivered Reason Notes Effectiveness by by 7:47:56 Oxygen etCO2 2 Jj Buffie used for Nasal l/min Oscar Tyler purchase price analyst cannula 7:48:06 Lidocaine 2% added 20ml Jj Jj for local to vial Oscar Moore MD anesthetic field 7:48:13 Heparin Flush added 2 bags Jj Jj used for Bag to Oscar Moore MD procedure (1000units/500ml field NS) 7:48:22 0.9% NaCl I.V. 100 Jj Buffie Per physician ml/hr Oscar Tyler RN 8:02:08 Versed I.V. 2 mg Jj Buffie for sedation Oscar Tyler RN 8:02:14 Fentanyl I.V. 50 mcg Jj Buffie for sedation Oscar Tyler RN 8:08:04 Versed I.V. 1 mg Jj Buffie for sedation Oscar Tyler RN 8:08:08 Fentanyl I.V. 50 mcg Jj Buffie for sedation Oscar Tyler RN 8:21:12 Heparin Bolus I.V. 10,000 Jj Buffie for verif ied units Oscar Tyler RN anticoagulation with dr moore 8:38:21 Plavix P.O. 600 mg Jj Buffie for Oscar Tyler RN antiplatelet therapy Procedure Log Time Note 7:36:00 Informed consent obtained and on chart 7:36:31 Lucian Tyler RN sent for patient. Start room use. 7:36:38 Procedure Status Elective Heart Cath (OP). 7:36:39 Time tracking: Regular hours (M-F 7:00 - 5:00) 7:36:42 Plan of Care:Hemodynamics will remain stable., Cardiac rhythm will remain stable., Comfort level will be maintained., Respiratory function will remain adequate., Patient/ family verbilizes understanding of procedure., Procedure tolerated without complication., Recovers from procedure without complications.. 7:36:51 H&P Date Dictated: 10/07/2019 Within 30 days and on chart., H&P Addendum completed by physician on day of procedure. (MUST COMPLETE FOR ALL OUTPATIENTS). 7:36:58 Patient allergic to No known allergies 7:38:41 Patient Weight : 224.87 lbs 7:38:59 Patient Height : 77.95 inches 7:39:59 Arrival Date: 11/01/2019 12:00:00 AM 7:43:44 Patient received from Pre/Post Procedure Room to CCL 1 Alert and oriented. Tansferred to table in Supine position. 7:43:45 Warm blankets applied, and damon hugger turned on for patient comfort. 7:43:45 Correct patient and procedure confirmed by team. 7:43:45 ECG and BP/O2 sat monitors applied to patient. 7:44:17 Lab Result : BUN 19 mg/dl 7:44:17 Lab Result : eGFR NONAFRICAN 63 ml/min 7:44:17 Lab Result : Creatinine 1.2 mg/dl 7:44:17 Lab Result : Hemoglobin 14.5 g/dl 7:44:17 Lab Result : Hematocrit 46.5 % 7:45:43 Pre-procedure instructions explained to patient. 7:45:43 Pre-op teaching completed and patient verbalized understanding. 7:45:44 Family in patients room. 7:45:46 Patient NPO since Midnight. 7:45:48 Is the patient allergic to Iodine/contrast media? No. 7:45:49 Is patient on blood thinner?No 7:45:50 Patient diabetic? No. 7:45:54 Previous problem with sedation/anesthesia? No ? 7:45:56 Snore? Yes 7:45:57 Sleep apnea? No 7:45:58 Deviated septum? No 7:45:59 Opens mouth fully? Yes 7:46:00 Sticks out tongue? Yes 7:46:12 Airway obstruction? Yes PREVIOUS DIAGNOSIS WITH PNEUMONIA 7:46:22 Dentures? No ? 7:46:25 Pre procedure: left dorsailis pedis pulse 2+ Normal; easily identifiable; not easily obliterated 7:46:39 RIGHT FOOT HAS A CAST. UNABLE TO FEEL PULSE 7:46:44 Patient pain scale 0/10 ?. 7:46:54 IV patent on arrival in right antecubital with 0.9% NaCl at O. 7:46:58 Lab results completed and on chart. 7:47:22 Right groin area was prepped with chlora-prep and draped in sterile fashion 7:47:37 DUE TO PATIENT HEIGHT. WILL GO GROIN 7:47:42 Alarms reviewed by R. N. 7:47:42 Sharps counted by scrub and verified by R.N. 7:47:45 Vital chart was started 7:47:46 Use device set Femoral Dx 7:47:47 ACIST Syringe (98792) opened to sterile field. 7:47:48 Bag Decanter () opened to sterile field. 7:47:51 ACIST Hand Control (65348) opened to sterile field. 7:47:53 ACIST Manifold (21430) opened to sterile field. 7:47:55 Tegaderm 4 x 4 (1626W) opened to sterile field. 7:47:56 Oxygen 2 l/min etCO2 Nasal cannula was administered by Lucian Tyler RN; used for procedure; Verbal order read back and verified. 7:47:57 Medline Cath Pack ([id number]) opened to sterile field. 7:47:58 DIAGNOSTIC Multipack 5Fr catheter set (VG6551) opened to sterile field. 7:47:59 SHEATH 5FR [place] (GHV549) opened to sterile field. 7:47:59 EMERALD Guide Wire (180-366) opened to sterile field. 7:48:04 Baseline sample Acquired. 7:48:06 Lidocaine 2% 20ml vial added to field was administered by Jj Moore MD; for local anesthetic; Verbal order read back and verified. 7:48:11 Rhythm: sinus rhythm 7:48:12 Full Disclosure recording started 7:48:13 Heparin Flush Bag (1000units/500ml NS) 2 bags added to field was administered by Jj Moore MD; used for procedure; Verbal order read back and verified. 7:48:22 0.9% NaCl 100 ml/hr I.V. was administered by Lucian Tyler RN; Per physician; Verbal order read back and verified. 8:00:03 UNABLE TO DOCUMENT SCAI RISK ASSESSMENT DUE TO WEBSITE DOWN. 8:00:26 --------ALL STOP TIME OUT------ 8:00:27 Final Timeout: patient, procedure, and site verified with staff and physician. All members of the team are in agreement. 8:00:28 Right groin site verified by team. 8:00:33 Fire Safety Assessment: A--An alcohol-based skin anteseptic being used preoperatively., C--Open oxygen or nitrous oxide is being used., D--An ESU, laser, or fiber-optic light is being used. 8:00:37 Physical assessment completed. ASA score P 2 - A patient with mild systemic disease as per Jj Moore MD. 8:00:41 2) 60-89 Mildly reduced kidney function, and other findings (as for stage 1) point to kidney disease. 8:00:45 Maximum allowable contrast dose (3.7 X eGFR X 0.75)175 ml. 8:00:49 Sedation plan: IV Moderate Sedation Medication:Versed, Fentanyl 8:02:08 Versed 2 mg I.V. was administered by Lucian Tyler RN; for sedation; Verbal order read back and verified. 8:02:14 Fentanyl 50 mcg I.V. was administered by Lucian Tyler RN; for sedation; Verbal order read back and verified. 8:04:18 Procedure started. 8:04:39 Insurance Payor : Medicare 8:04:58 Local anesthetic to right femoral artery with Lidocaine 2% by Jj Moore MD.INITIAL ACCESS ONLY 8:05:58 A 5 Fr sheath was inserted into the Right Femoral artery 8:06:36 A MULTIPACK JL 4.0 5Fr catheter was advanced over the wire and used for Procedure. 8:07:47 LCA angiography performed. 8:08:04 Versed 1 mg I.V. was administered by Lucian Tyler RN; for sedation; Verbal order read back and verified. 8:08:08 Fentanyl 50 mcg I.V. was administered by Lucian Tyler RN; for sedation; Verbal order read back and verified. 8:09:23 Catheter exchanged over wire. 8:09:48 A MULTIPACK 3DRC 5Fr catheter was advanced over the wire and used for Procedure. 8:11:26 RCA angiography performed. 8:12:08 ACCDominant side:Right 8:12:12 Catheter exchanged over wire. 8:13:01 A MULTIPACK Pigtail 5 Fr catheter was advanced over the wire and used for Procedure. 8:14:48 Injector settings: Ml/sec: 10, Volume: 20, 8:14:51 LV gram done using GAGE 8:14:52 LV hemodynamics recorded. 8:15:02 EF : 35 % 8:15:47 Catheter exchanged over wire. 8:15:51 Proceeding to intervention. 8:15:56 INFLATOR Merit BasixCompak (UZ7070) opened to sterile field. 8:16:00 SHEATH 6FR [place] (UNF230) opened to sterile field. 8:16:09 Sheath upsized to a 6 Fr Short. 8:17:23 Asahi Minamo 300cm wire opened to sterile field. 8:17:24 TUBING High Pressure Extension Tubing (Oscar) ([id number]) opened to sterile field. 8:18:04 GUIDE 6FR JR 4.0 catheter (HB7FC78) opened to sterile field. 8:18:13 6 Fr JR 4 guide catheter was inserted over the wire 8:18:35 Pre PCI Site: [place] mRCA has 90% stenosis. 8:20:36 ASAHI MINAMO 300 wire advanced. 8:21:12 Heparin Bolus 10,000 units I.V. was administered by Lucian Tyler RN; for anticoagulation; verified with dr moore Verbal order read back and verified. 8:26:17 Place stent Inflation Number: 1 A SHAMAR OTW 3.0 x 12 stent ([id number]) was prepped and advanced across the Mid RCA . The stent was deployed at 14 LEANDRO for 0:00 (min:sec) . 8:26:52 Stent catheter was removed intact over wire. 8:32:15 Wire redirected to PROX RCA. 8:33:11 Place stent Inflation Number: 1 A SHAMAR OTW 3.5 x 15 stent ([id number]) was prepped and advanced across the Prox RCA . The stent was deployed at 16 LEANDRO for 0:00 (min:sec) . 8:33:32 Stent catheter was removed intact over wire. 8:33:33 Wire removed. 8:33:33 Guide catheter removed. 8:33:38 EXOSEAL 6Fr (EX600) opened to sterile field. 8:33:50 Sheath removed intact; hemostasis achieved with Exoseal to the Right Femoral artery. 8:35:08 Procedure ended.(Physican Out) 8:35:14 Fluoroscopy time 09.50 minutes. 8:35:20 Fluoroscopy dose: 1336 mGy 8:35:20 Flurop Dose total: 1336 8:35:30 Dose Area Product 36219 mGy/cm. 8:35:34 Contrast amount:Isovue 370 166ml. 8:35:37 Maximum allowable dose exceeded? No. 8:35:42 Sharps counted by scrub and verified by R.N. 8:36:09 Post-op/insertion site Right Femoral artery dressed using a 4 x 4 and Tegaderm. 8:36:15 Post right femoral artery:stable, soft, clean and dry 8:36:16 Post Procedure Pulses reassessed and unchanged 8:36:21 Post procedure: left dorsailis pedis pulse 2+ Normal; easily identifiable; not easily obliterated. 8:36:25 Post-procedure physical assessment completed. ASA score P 2 - A patient with mild systemic disease as per Jj Moore MD. 8:36:28 Post procedure rhythm: unchanged. 8:36:31 Estimated blood loss: 10 ml 8:36:34 Post procedure instruction explained to patient.Patient verbalizes understanding. 8:36:35 Patient needs reinforcement of post procedure teaching. 8:37:40 Procedure type changed to Cath procedure, Diagnostic procedure, LHC, [facility] w/Coronaries, Sedation Charges, Moderate Sedation up to 30 minutes, PCI procedure, Coronary Stent, Coronary Stent Initial x2, Hemochron ACT Test 8:38:11 Procedure and supply charges have been captured, reviewed, submitted and are correct. 8:38:15 Procedure Complication : No complications 8:38:21 Plavix 600 mg P.O. was administered by Lucian Tyler RN; for antiplatelet therapy; Verbal order read back and verified. 8:38:22 [facility] Findings: MVD- PCI performed (see procedure note) 8:38:26 Operative report dictated upon procedure completion. 8:38:27 See physician's report for complete and final results. 8:38:29 Report given to Pre/Post Procedure Room. 8:38:32 Patient transfered to Pre/Post Procedure Room with Stretcher. 8:40:32 ACT drawn and resulted at OUT OF RANGE seconds. (normal therapeutic range 180-240 seconds). 8:40:39 Vital chart was stopped 8:40:42 Procedure ended. 8:40:42 Full Disclosure recording stopped 8:41:06 ACC-PCI Only Patient was given prescriptions, or instructed by Jj Moore MD to start/continue the following medications upon discharge: Plavix 8:41:52 End room use (Document Last) 8:45:24 End room use (Document Last) 8:45:54 End room use (Document Last) Intervention Summary Intervention Notes Time ActionType Lesion and Equipment Action# Pressure Duration Attributes Used 8:26:17 Place stent Mid RCA SHAMAR OTW 3.0 1 14 00:00 x 12 stent ([id number]) 8:33:11 Place stent Prox RCA SHAMAR OTW 3.5 1 16 00:00 x 15 stent ([id number]) Device Usage Item Name Manufacture Quantity Catalog Hospital Part Current Mini mal Lot# / Number Charge Number Stock Stock Serial# Code ACIST Syringe Acist 1 43128 432500 904731 960873 20 (05860) Medical Systems Inc Bag Decanter Microtek 1 2001S 364054 92369 526831 5 (2001S) Medical Inc. ACIST Hand Acist 1 62340 593777 342265 116293 5 Control Medical (85718) Systems Inc ACIST Acist 1 39485 506813 582281 072346 5 Manifold Medical (75568) Systems Inc Tegaderm 4 x 3M 1 1626W 123840 790218 457211 5 4 (1626W) Medline Cath Medline 1 [id number] 416423 77727 573535 5 Pack ([id number]) DIAGNOSTIC Cardinal 1 RK3793 867970 27406 441120 30 Multipack 5Fr Health catheter set (EV5630) SHEATH 5FR Terumo 1 EHC201 689314 608779 006109 5 [place] (VBZ202) EMERALD Guide Cardinal 1 502-455 400862 211132 846846 5 Wire Health (502-455) MULTIPACK JL Cardinal 1 526288 5 4.0 5Fr Health catheter MULTIPACK Cardinal 1 621014 5 3DRC 5Fr Health catheter MULTIPACK Cardinal 1 762574 5 Pigtail 5 Fr Health catheter INFLATOR Merit 1 MT7533 746449 200754 136665 15 [facility] Medical BasixCompak (BJ5191) SHEATH 6FR Terumo 1 ZQE781 108149 543644 254877 40 [place] (OTL104) [facility] Intecc 1 [id number] 710473 5908109 077046 0 300cm wire TUBING High Merit 1 [id number] 727231 05288 724255 10 Pressure Medical Extension Tubing (Moore) (OT1696L) GUIDE 6FR JR Medtronic 1 YW9HB84 321034 07836 197788 1 4.0 catheter ([id number]) SHAMAR OTW 3.0 Medtronic 1 [id number] 774881 9729261 993022 5 [id number] x 12 stent ([id number]) SHAMAR OTW 3.5 Medtronic 1 [id number] 893710 7322863 500864 5 [id number] x 15 stent ([id number]) EXOSEAL 6Fr Cardinal 1 EX600 229381 723031 633137 10 (EX600) Health Signature Audit [place] Stage Time Signature Unsigned Intra-Procedure 11/01/2019 Sheba De Souza 8:45:25 AM RT(R) Intra-Procedure 11/01/2019 Lucian Tyler RN 8:45:54 AM Intra-Procedure 11/01/2019 Jj Moore MD 8:46:15 AM [place] [id number]
[2019-11-01 06:44] VITALS: BP 147/77; Ht 198.1 cm; Wt 101.8 kg
[2019-11-01 07:07] LABS: BASOPHILS 0.3 % (0-2); EOSINOPHILS 2.1 % (0-7); HEMATOCRIT 46.5 % (42.0-54.0); HEMOGLOBIN 14.5 g/dL (13.5-17.5); IMMATURE GRANULOCYTES 1.2 % (0-5); LYMPHOCYTES 17.7 % (15-50); MCH 27.8 pg (26.0-34.0); MCHC 31.2 g/dL (31.0-37.0); MCV 89.3 fL (80.0-100.0); MEAN PLATELET VOLUME 10.6 fL (7.4-10.4); MONOCYTES 10.7 % (2-11); RBC 5.21 10x6/uL (4.20-6.10); RDW 15.2 % (11.5-14.5); WBC 6.6 10x3/uL (4.8-10.8)
[2019-11-01 07:11] LABS: PLATELET COUNT 211 10x3/uL (130-400)
[2019-11-01 07:28] LABS: ANION GAP 6.1 mmol/L (8-16); CALCIUM 8.3 mg/dL (8.5-10.1); CARBON DIOXIDE 35.2 mmol/L (21.0-32.0); CHOL - HDL RATIO 2.1 ratio (2.3-4.9); CREATININE - SERUM 1.2 mg/dL (0.6-1.3); LDL-HDL RATIO 0.9 ratio (1.5-3.5); POTASSIUM - SERUM 4.3 mmol/L (3.5-5.1)
--- NOTE | 2019-11-01 08:59 | NUR ---
REC TO ROOM VIA STRETCHER FROM SENIOR LITIGATION PARALEGAL. MONITORING INITIATED. ROUSES TO VERBAL, DROWSY. R GROIN CDI, TEGADERM AND 4X4 DRESSING. GROIN SOFT, NO S/S BLEEDING OR HEMATOMA. R POPLITEAL PULSE PALPABLE. R FOOT AND ANKLE IN HARD CAST. AT BEDSIDE. HR 70, SR W PVC EVERY 6TH BEAT. BP 132/67, RR 10, SAAT 97% ON 2LNC.
[2019-11-01] MEDS ORDERED: PLAVIX75 MG PO (09:03)
--- NOTE | 2019-11-01 09:15 | NUR ---
R GROIN CDI, SOFT. NO S/S BLEEDING/HEMATOMA. BP 129/75, HR 73 NSR W OCC PVC. RR 10, SAT 98% 2LNC. VOIDED 300ML CL YELLOW URINE INTO URINAL WITHOUT COMPLAINT. AT BEDSIDE.
--- NOTE | 2019-11-01 09:45 | NUR ---
R GROIN REMAINS SOFT, CDI. NO S/S BLEEDING/HEMATOMA. AT BEDSIDE. NR 69, VERY OCC PVC. SAT 99%ON 2LNC, RR 11. BP 124//72.
--- NOTE | 2019-11-01 10:00 | NUR ---
R GROIN REMAINS SOFT, CDI. NO S/S BLEEDING OR HEMATOMA. POPLITEAL PULSE PALPABLE. HR 65, NSR. BP 124/72. SAT 99% ON 2LNC.
--- NOTE | 2019-11-01 10:26 | NUR ---
R GROIN DRESSING REMAINS CDI, GROIN SOFT. NO S/S BLEEDING/HEMATOMA. HR NSR 65, BP 128/75. SAT 98% ON 2LNC.
--- NOTE | 2019-11-01 10:58 | NUR ---
R GROIN REMAINS CDI, SOFT. NO S/S BLEEDING/HEMATOMA. HR NSR 67, BP 136/74.
--- NOTE | 2019-11-01 11:29 | NUR ---
R GROIN CDI, SOFT. NO S/S BLEEDING/HEMATOMA.NSR, HR 65, BP 123/78.
--- NOTE | 2019-11-01 11:50 | NUR ---
R GROIN REMAINS SOFT, CDI, NO S/S BLEEDING/HEMATOMA. HOB RAISED TO PT COMFORT. SANDWICH WITH COFFEE AND OJ PROVIDED PER PT REQUEST.
--- NOTE | 2019-11-01 12:04 | NUR ---
R GROIN CDI, SOFT. NO S/S BLEEDING OR HEMATOMA. ALDAIR REGULAR DIET. HR SR,73. SAT 98% RA. BP 144/72.
--- NOTE | 2019-11-01 12:18 | NUR ---
R GROIN REMAINS SOFT, CDI. NO S/S BLEEDING/HEMATOMA. HOB RAISED FOR PT COMFORT. OFFERED SANDWICH. PT STATES HE IS VEGETARIAN. CALLED DIETARY FOR VEGETARIAN ENTREE, PT EATING APPLESAUCE AND DRINKING COFFEE WHILE HE WAITS.
--- NOTE | 2019-11-01 12:30 | NUR ---
IV DC TIP INTACT, MONITORING DC. DC TEACHING COMPLETED W PT AND . R GROIN REMAINS SOFT, CDI. NO S/S BLEEDING OR HEMATOMA. PT DRESSING W ASSIST OF .
--- NOTE | 2019-11-01 12:40 | NUR ---
DC HOME VIA WHEELCHAIR TO PRIVATE CAR W . PT HAS ALL BELONGINGS.
== END 2019-11-01 12:40 ==
LOC: D.CATH 06:16
PROVIDERS: ATTEND Internal Medicine Cardiovascular Disease
DX: I25.119 Atherosclerotic heart disease of native coronary artery with unspecified angina pectoris (principal); I42.9 Cardiomyopathy, unspecified
CPT/HCPCS: 93458; C9600

== ENCOUNTER → 2020-02-27 14:06 | Outpatient (CLI) | payer MEDICARE, BC ==
[2019-11-01 06:44] VITALS: BMI 25.9
== END | disposition home or self-care (01) ==
LOC: D.RAD 01-18 14:45 → D.RT 01-18 15:00 → D.RAD 14:45
PROVIDERS: ATTEND Internal Medicine Pulmonary Disease
DX: J44.9 Chronic obstructive pulmonary disease, unspecified (principal)

== ENCOUNTER → 2020-03-23 11:08 | Outpatient (CLI) | payer MEDICARE, BC ==
[2019-11-01 06:44] VITALS: BMI 25.9
== END | disposition home or self-care (01) ==
LOC: D.HCCECHO 11:08
PROVIDERS: ATTEND Internal Medicine Cardiovascular Disease
DX: I25.10 Atherosclerotic heart disease of native coronary artery without angina pectoris (principal)